=== PATIENT | female | born 1955 | race Caucasian/White ===

== ENCOUNTER 2019-08-15 16:09 | Emergency (ER) | payer MEDICAID, SELFPAY ==
[2019-08-15 16:11] VITALS: TEMP 36.6; BMI 27.4
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
--- NOTE | 2019-08-15 16:22 | XRR_ITS ---
PROCEDURE INFORMATION: Exam: XR Chest, 1 View Exam date and time: 08/15/2019 4:47 PM Age: 64 years old Clinical indication: Chest pain; Additional info: Chest pain, mhe TECHNIQUE: Imaging protocol: XR of the chest Views: 1 view. COMPARISON: CR Chest 1 [place] [id number] 07/21/2017 12:10 PM FINDINGS: Lungs: Unremarkable. No consolidation. Pleural space: Unremarkable. No pleural effusion. No pneumothorax. Heart/Mediastinum: Unremarkable. No cardiomegaly. Bones/joints: Unremarkable. XR/XR chest 1V portable [id number] IMPRESSION: No acute findings.
[2019-08-15 16:23] VITALS: BP 167/110; PULSE 87; RESP 18; O2SAT 98
[2019-08-15 17:02] LABS: Basophils % 0.2 %; Eosinophils # 0.1 10^3/uL (0.0-0.8); Eosinophils % 1.2 %; Hematocrit 39.6 % (37.0-47.0); Hemoglobin 13.1 g/dL (11.5-15.3); Lymphocytes # 0.7 10^3/uL (0.8-4.8); Lymphocytes % 10.1 %; Mean Corpuscular HGB Conc 33.1 g/dL (30.0-36.0); Mean Corpuscular Volume 87.8 fL (81-99); Mean Platelet Volume 10.6 fL (7.4-10.4); Monocytes # 0.4 10^3/uL (0.2-0.9); Monocytes % 5.7 %; Neutrophils # 5.4 10^3/uL (1.8-7.7); Neutrophils % 82.5 %; Nucleated Red Blood Cells % 0 %; Platelet Count 105 10^3/cmm (130-400); Red Blood Count 4.51 10^6/uL (4.1-5.3); Red Cell Distribution Width 13.7 % (12.1-15.1); White Blood Count 6.5 10^3/uL (4.0-10.0)
[2019-08-15 17:10] LABS: Add Urine Microscopic? NO
[2019-08-15 17:22] LABS: Specific Gravity, Urine 1.015 (1.005-1.030); Urine Appearance Clear (CLEAR); Urine Color Yellow (Yellow); pH Urine 5 (5-7)
[2019-08-15 17:23] LABS: Bilirubin Urine Neg (NEGATIVE); Blood Urine Neg (Negative); Glucose Urine UA Norm (Normal); Ketones Urine Negative (Negative); Leukocyte Esterase Urine Negative (Negative); Nitrate Urine Negative (Negative); Protein Urine Neg (Negative); Urobilinogen Urine Norm (Negative)
[2019-08-15 17:39] LABS: Anion Gap 17.3 (5-19); Blood Urea Nitrogen 12 mg/dL (8-23); Carbon Dioxide 25 mmol/L (22-29); Chloride 99 mmol/L (98-107); Creatinine Clr Calc Pharmacy 62.4704; Glomerular Filtration Rate 63.2 mL/min (90-130); Glucose 170 mg/dL (74-106); Osmolality Calculated 286 mOsm/kg (285-295); Potassium 3.3 mmol/L (3.5-5.1); Sodium 138 mmol/L (136-145)
[2019-08-15 18:53] VITALS: BP 135/90; PULSE 68; RESP 17; O2SAT 97
== END 2019-08-15 18:55 | disposition home or self-care (01) ==
PROVIDERS: Emergency Provider Emergency Medicine; Family Provider Family Medicine
DX: R45.1 Restlessness and agitation (principal)
CPT/HCPCS: 36415; 71045; 80048; 81003; 85025; 99282

== ENCOUNTER 2019-08-15 21:14 | Emergency (ER) | payer MEDICAID, SELFPAY ==
[2019-08-15 21:22] VITALS: BP 175/108; PULSE 90; RESP 16; TEMP 37; O2SAT 96; BMI 27.4
[2019-08-15 21:30] VITALS: BP 175/108; PULSE 93; RESP 16; O2SAT 98
--- NOTE | 2019-08-15 21:32 | W.ED.GENADLT ---
HPI - General Adult General: Chief complaint: Skin/Abscess/Foreign Body Stated complaint: rash l hand Time Seen by Provider: 08/15/19 21:25 History of Present Illness: HPI narrative: Patient states that while she is waiting in the waiting room for her ride after she has been discharged that she had a rash started on her left hand. complaint: petechia Onset (ago): minute(s) Location: left and upper extremity Radiation: non-radiation Severity: mild Review of Systems General: Reports: 10 or more systems reviewed and unremarkable except in HPI and below (Says there is a rash in her left hand that started few months ago.) PFSH ED PFSH: Statuses (acute, chronic, etc) shown below reflect problem list status as previously entered and may not be historically accurate Social History Smoking and tobacco status: current every day smoker Physical Exam Const: COMMON NORMALS: no apparent distress Skin: COMMON NORMALS: no rashes or lesions noted NARRATIVE SKIN EXAM: Patient does not really have a rash in her hands she has a few petechiae very small that been there a long time that just noticed no erythema pain or anything like that noted GENERAL SKIN EXAM: no rashes or lesions noted Course Vital Signs: Vital signs: Vital Signs Temperature 98.6 F 08/15/19 21:22 Pulse Rate 93 08/15/19 21:30 Respiratory Rate 16 08/15/19 21:30 Blood Pressure 175/108 08/15/19 21:30 Pulse Oximetry 98 08/15/19 21:30 Discharge Plan Discharge Patient Disposition: Home, Self-Care Clinical Impression: Petechiae Condition: Stable Discharge Orders: Discharge Order (Routine); Ordered 08/15/19 Ordered By: Yandel Zamudio Referrals: Jose Ryan Jr, MD [Family Provider] - Discharge Diet: Usual diet Discharge Activity: Resume usual activity Activity Restrictions/Additional Instructions: Follow-up with primary provider as necessary Coding Level of Care Code ED Clin Application Specialist for Randal Kirby
== END 2019-08-15 21:42 | disposition home or self-care (01) ==
PROVIDERS: Emergency Provider Nurse Practitioner Family; Family Provider Family Medicine
DX: R23.3 Spontaneous ecchymoses (principal); F17.210 Nicotine dependence, cigarettes, uncomplicated
CPT/HCPCS: 99281

== ENCOUNTER 2019-09-05 10:18 | Outpatient (CLI) | payer MEDICAID, SELFPAY ==
--- NOTE | 2019-09-05 10:18 | MM_ITS ---
WS: [id number] BILATERAL DIGITAL SCREENING MAMMOGRAPHY WITH CAD CLINICAL INFORMATION: SCREENING HISTORY: Screening mammogram. No current complaints. COMPARISON: April 19, 2018 TECHNIQUE: Bilateral CC and MLO views. FINDINGS: Scattered fibroglandular densities bilaterally. Vascular calcification. No suspicious focal mass, asy mmetry, calcifications, or architectural distortion. No evidence of malignancy. MM/[id number] IMPRESSION: BI-RADS: 1-Negative FOLLOW UP: 1 Year Follow-up Recommend return to annual screening mammography.
== END 2019-09-05 10:19 | disposition home or self-care (01) ==
LOC: RADSHAW 10:18
PROVIDERS: Family Provider Family Medicine; PCP Family Medicine; Visit Provider Family Medicine
DX: Z12.31 Encounter for screening mammogram for malignant neoplasm of breast (principal)
CPT/HCPCS: 77067

== ENCOUNTER 2020-10-12 10:31 | Outpatient (CLI) | payer MEDICAID, SELFPAY ==
--- NOTE | 2020-10-12 10:37 | MM_ITS ---
WS: [id number] Exam: [place] [id number] Date/Time of Exam: 10/12/2020 10:38 AM Reason For Exam: SCREENING VIEWS: MLO and CC views both breasts. Comparison made with prior exam of 08/02/2016, 04/19/2018 and 09/05/2019. Findings: There was no sign of mass, architectural distortion or suspicious calcification in either breast. Sc attered fibroglandular densities MM/[place] [id number] Impression: BI-RADS: 2-Benign FOLLOW-UP: 1 Year Follow-up This mammogram was also analyzed by the Computer Aided Detection System R2 Imag e Supply Aide.
== END 2020-10-12 10:32 | disposition home or self-care (01) ==
LOC: RADSHAW 10:36
PROVIDERS: PCP Family Medicine; Visit Provider Family Medicine
DX: Z12.31 Encounter for screening mammogram for malignant neoplasm of breast (principal)
CPT/HCPCS: 77067

== ENCOUNTER → 2020-11-06 10:00 | Outpatient (BNVA) | payer MEDICAID, SELFPAY | PROVIDERS: PCP Family Medicine; Visit Provider Obstetrics & Gynecology | DX: Z12.4 Encounter for screening for malignant neoplasm of cervix (principal); Z12.11 Encounter for screening for malignant neoplasm of colon | CPT/HCPCS: 88175 ==

== ENCOUNTER 2021-12-02 17:12 | Emergency (ER) | payer MEDICAID, SELFPAY ==
[2021-12-02 17:39] VITALS: BP 134/80; PULSE 87; RESP 18; TEMP 37; O2SAT 97; BMI 25.4
--- NOTE | 2021-12-02 18:24 | CTR_ITS ---
PROCEDURE INFORMATION: Exam: CT Abdomen And Pelvis Without Contrast Exam date and time: 12/02/2021 6:44 PM Age: 66 years old Clinical indication: Abdominal pain; Localized; Right; Prior surgery; Surgery date: 6+ months; Surgery type: Appy; Additional info: Right flank pain TECHNIQUE: Imaging protocol: Computed tomography of the abdomen and pelvis without contrast. Radiation optimization: All CT scans at this facility use at least one of these dose optimization techniques: automated exposure control; mA and/or kV adjustment per patient size (includes targeted exams where dose is matched to clinical indication); or iterative reconstruction. COMPARISON: CT abdomen pelvis w con* [id number] 02/11/2016 8:27 PM RADIATION DOSE METRICS: Total DLP (mGy-cm): 675.55 FINDINGS: Liver: Normal. No mass. Gallbladder and bile ducts: Cholelithiasis. Pancreas: Normal. No ductal dilation. Spleen: Normal. No splenomegaly. Adrenal glands: Normal. No mass. Kidneys and ureters: Normal. No hydronephrosis. Stomach and bowel: Constipation. Appendix: No evidence of appendicitis. Intraperitoneal space: Unremarkable. No free air. No significant fluid collection. Vasculature: Unremarkable. No abdominal aortic aneurysm. Lymph nodes: Unremarkable. No enlarged lymph nodes. Urinary bladder: Unremarkable as visualized. Reproductive: Unremarkable as visualized. Bones/joints: L1 vertebral body superior endplate compression fracture without retropulsion of bony fragments, new compared to prior exam. Soft tissues: Small umbilical hernia containing omentum without bowel. CT/CT kidney stone [id number] IMPRESSION: 1. Negative for acute inflammatory process in the abdomen or pelvis. 2. Cholelithiasis. 3. Constipation. 4. Small umbilical hernia containing omentum without bowel. 5. L1 vertebral body superior endplate compression fracture without retropulsion of bony fragments, new compared to prior exam.
--- NOTE | 2021-12-02 18:31 | ED_ITS ---
HPI - Abdominal Pain General: Chief Complaint: Abdominal Pain Stated Complaint: R SIDED ABD PAIN Time Seen by Provider: 12/02/21 18:23 History of Present Illness: 66-year-old female comes in today with complaints of right flank pain. Patient reports pain increases with palpation of the musculature. Patient does admit that she fell on Monday and hit the back of her head denies any loss of consciousness. Since then patient has had some increased back pain. Patient was concerned that she may have a kidney stone though. Patient came in by EMS. Patient appears well. Patient appears in no acute distress. Patient does report that the floor was wet when she slipped. Patient has a history of diabetes and mental health issues. Associated Symptoms: Denies fever(s) Review of Systems General: Reports: 10 or more systems reviewed and unremarkable except in HPI and below Const: Denies: fever(s) Card: Denies: chest pain Resp: Denies: dyspnea : Reports: flank pain Musc: Reports: back pain Skin/Breast: Denies: rash PFSH ED PFSH: Medical History (Updated 12/02/21 @ 20:23 by OMERO Hung) Well woman exam with routine gynecological exam Surgical History (Updated 11/09/20 @ 17:34 by Adama Balderas MD) H/O dilation and curettage S/P appendectomy Family History (Updated 11/06/20 @ 09:55 by Melyssa Martel RN) Sister Diabetes Mother Heart disease Thyroid condition Clotting disorder Father Hypertension Brain aneurysm Denies family history of Colon cancer Ovarian cancer Breast cancer Anesthesia complication Bleeding disorder Uterine cancer Stroke Social History (Updated 11/06/20 @ 09:55 by Melyssa Martel RN) Smoking and tobacco status: never smoked Alcohol intake: never Physical Exam Const: COMMON NORMALS: alert HENMT: COMMON NORMALS: atraumatic HEAD & SCALP: atraumatic Neck/C-Spine: COMMON NORMALS: full ROM Chest: COMMONS NORMALS: normal inspection of the chest and normal palpation of the breasts BREAST/AXILLA PALPATION: Yes normal palpation of the breasts Resp: COMMON NORMALS: normal respiratory effort and clear to auscultation bilaterally AUSCULTATION: clear to auscultation bilaterally Cardio: COMMON NORMALS: regular rate RATE: regular rate GI: COMMON NORMALS: Soft to palpation AUSCULTATION: Yes normoactive bowel sounds PALPATION: Yes Soft to palpation and Yes Tenderness to palpation present (GI) (Generalized) Back/Pelvis: LUMBAR SPINE/LOWER BACK: Yes paraspinal muscle tenderness Lumbar paraspinal muscle tenderness: right Right lumbar paraspinal muscle tenderness: L2 and L3 Extremity: COMMON NORMALS: normal to inspection Neuro: SENSORIUM/ORIENTATION: Yes alert Skin: COMMON NORMALS: no rashes or lesions noted GENERAL SKIN EXAM: no rashes or lesions noted Course Vital Signs: Vital signs: Vital Signs Temperature 98.6 F 12/02/21 17:39 Pulse Rate 87 12/02/21 17:39 Respiratory Rate 18 12/02/21 17:39 Blood Pressure 134/80 12/02/21 17:39 Pulse Oximetry 97 12/02/21 17:39 MDM - Abdominal Pain Medical Decision Making Patient comes in today for complaints of right flank pain. Patient reports that she had fallen last Monday and since then has had some mid low back pain. It was reported that they were concerned for a renal stone. On exam abdomen was soft with some mild tenderness. Respirations were even lungs were clear to auscultation. Skin was warm and dry. Patient has tenderness in the right para spinous muscles of the lumbar spine. Differential diagnosis includes renal calculi, UTI, vertebral fracture, intervertebral disc disease, facet arthropathy. CT of the abdomen and pelvis indicated no renal calculi but did note a acute L1 vertebral fracture. No signs of significant retropulsion or abnormality was noted. CBC CMP and urinalysis were unremarkable. Patient was recommended to use acetaminophen or ibuprofen for pain. Patient can use some hydrocodone as needed for severe pain. Follow-up with primary care for further instruction. Patient was released back to [facility]. Lab Data : 12/02/21 19:55 12/02/21 19:00 Labs/Radiology: Radiology Impressions Abdomen/Pelvis CT 12/02/21 18:24 IMPRESSION: 1. Negative for acute inflammatory process in the abdomen or pelvis. 2. Cholelithiasis. 3. Constipation. 4. Small umbilical hernia containing omentum without bowel. 5. L1 vertebral body superior endplate compression fracture without retropulsion of bony fragments, new compared to prior exam. Laboratory Results WBC 4.8 10^3/uL (4.0-10.0) 12/02/21 19:55 Corrected WBC Cancelled 12/02/21 19:00 RBC 4.27 10^6/uL (4.1-5.3) 12/02/21 19:55 Hgb 12.9 g/dL (11.5-15.3) 12/02/21 19:55 Hct 39.4 % (37.0-47.0) 12/02/21 19:55 MCV 92.3 fl (81-99) 12/02/21 19:55 MCH 30.2 pg (28.0-34.0) 12/02/21 19:55 MCHC 32.7 g/dL (30.0-36.0) 12/02/21 19:55 RDW 13.4 % (12.1-15.1) 12/02/21 19:55 Plt Count 116 10^3/cmm (130-400) L 12/02/21 19:55 MPV 11.2 fL (7.4-10.4) H 12/02/21 19:55 Gran % Cancelled 12/02/21 19:00 Neut % (Auto) 59.3 % 12/02/21 19:55 Lymph % (Auto) 24.8 % 12/02/21 19:55 [place] % (Auto) 8.9 % 12/02/21 19:55 Eos % (Auto) 6.2 % 12/02/21 19:55 Baso % (Auto) 0.4 % 12/02/21 19:55 Neut # (Auto) 2.86 10^3/uL (1.8-7.7) 12/02/21 19:55 Lymph # (Auto) 1.2 10^3/uL (0.8-4.8) 12/02/21 19:55 [place]win # (Auto) 0.4 10^3/uL (0.2-0.9) 12/02/21 19:55 Eos # (Auto) 0.3 10^3/uL (0.0-0.8) 12/02/21 19:55 Baso # (Auto) 0.0 10^3/uL (0.0-0.1) 12/02/21 19:55 Absolute Gran (auto) Cancelled 12/02/21 19:00 Nucleated RBC % (auto) 0 % 12/02/21 19:55 Nucleated RBCs # 0.0 /100WBC 12/02/21 19:55 Sodium 139 mmol/L (136-145) 12/02/21 19:00 Potassium 4.2 mmol/L (3.5-5.1) 12/02/21 19:00 Chloride 101 mmol/L (98-107) 12/02/21 19:00 Carbon Dioxide 26 mmol/L (22-29) 12/02/21 19:00 Anion Gap 16.2 (5-19) 12/02/21 19:00 BUN 13 mg/dL (8-23) 12/02/21 19:00 Creatinine 0.7 mg/dL (0.5-0.9) 12/02/21 19: GFR Calculation 84.0 mL/min (90-130) L 12/02/21 19: Glucose 120 mg/dL (65-115) H 12/02/21 19: Calculated Osmolality 289 mOsm/kg (285-295) 12/02/21 19: Calcium 9.6 mg/dL (8.5-10.5) 12/02/21 19: Total Bilirubin 0.2 mg/dL (0.15-1.2) 12/02/21 19: AST 19 U/L (0-32) 12/02/21 19: ALT 16 U/L (0-33) 12/02/21 19: Alkaline Phosphatase 86 IU/L (35-105) 12/02/21 19: Total Protein 8.5 g/dL (6.6-8.7) 12/02/21 19: Albumin 4.9 g/dL (3.5-5.2) 12/02/21 19: Globulin 3.6 g/dL (1.3-4.6) 12/02/21 19: Lipase 53 U/L (13-60) 12/02/21 19: Urine Color Yellow (Yellow) 12/02/21 19: Urine Appearance Hazy (CLEAR) A 12/02/21 19: Urine pH 6 (5-7) 12/02/21 19: Ur Specific [place] 1.015 (1.005-1.030) 12/02/21 19: Urine Protein Neg (Negative) 12/02/21 19: Urine Glucose (UA) Norm (Normal) 12/02/21 19:00 Urine Ketones Negative (Negative) 12/02/21 19:00 Urine Blood Neg (Negative) 12/02/21 19:00 Urine Nitrate Negative (Negative) 12/02/21 19:00 Urine Bilirubin Neg (Negative) 12/02/21 19:00 Urine Urobilinogen Norm mg/dL (Negative) 12/02/21 19:00 Ur Leukocyte Esterase Negative (Negative) 12/02/21 19:00 Discharge Plan Discharge Patient Disposition: Home Clinical Impression: Closed lumbar vertebral fracture Qualifiers: Encounter type: initial encounter Lumbar vertebra fracture level: L1 Fracture morphology: unspecified fracture morphology Qualified Code(s): S32.019A - Unspecified fracture of first lumbar vertebra, initial encounter for closed fracture Condition: Stable Prescriptions: New hydrocodone-acetaminophen 5-325 mg tablet 1 tab PO Q8H PRN (Reason: pain (scale score 7-10)) Qty: 10 0RF No Action Stomach medication PO BID 0RF docusate sodium [Colace] 100 mg capsule 100 mg PO DAILY 0RF Lantus Solostar U-100 Insulin 100 unit/mL (3 mL) insulin pen 10 unit SUBCUT DAILY 0RF lorazepam [Ativan] 1 mg tablet 1 mg PO DAILY PRN0RF quetiapine [Seroquel] 400 mg tablet 400 mg PO .at hs 0RF Discharge Orders: Discharge ED (Routine); Ordered 12/02/21 Ordered By: Kota Kumari Referrals: Chelita Alcaraz MD [Primary Care Provider] - Discharge Diet: Usual diet Discharge Activity: Increase activity as tolerated Patient Instructions: Thoracolumbar Fracture (ED), Opioid Safety Activity Restrictions/Additional Instructions: Use acetaminophen and/or ibuprofen as needed for pain. Use hydrocodone for severe pain. Activity as tolerated. Follow-up with primary care for further instructions. Return to ER for new concerns. Coding Level of Care Code ED Rail Signal Designer for Vandanag Fwd Exam Comprehensive
[2021-12-02 19:31] LABS: Alanine Aminotransferase 16 U/L (0-33); Albumin Level 4.9 g/dL (3.5-5.2); Alkaline Phosphatase 86 IU/L (35-105); Blood Urea Nitrogen 13 mg/dL (8-23); Calcium 9.6 mg/dL (8.5-10.5); Carbon Dioxide 26 mmol/L (22-29); Chloride 101 mmol/L (98-107); Globulin 3.6 g/dL (1.3-4.6); Glucose 120 mg/dL (65-115); Lipase 53 U/L (13-60); Osmolality Calculated 289 mOsm/kg (285-295); Sodium 139 mmol/L (136-145); Total Bilirubin 0.2 mg/dL (0.15-1.2); Total Protein 8.5 g/dL (6.6-8.7)
[2021-12-02 19:33] LABS: Anion Gap 16.2 (5-19); Aspartate Amino Transferase 19 U/L (0-32); Potassium 4.2 mmol/L (3.5-5.1)
[2021-12-02 19:35] LABS: Add Urine Microscopic? NO; Charge for UA Resulting for Rev
[2021-12-02 19:47] LABS: Bilirubin Urine Neg (Negative); Blood Urine Neg (Negative); Glucose Urine UA Norm (Normal); Ketones Urine Negative (Negative); Leukocyte Esterase Urine Negative (Negative); Nitrate Urine Negative (Negative); Protein Urine Neg (Negative); Specific Gravity, Urine 1.015 (1.005-1.030); Urine Appearance Hazy (CLEAR); Urine Color Yellow (Yellow); Urobilinogen Urine Norm (Negative); pH Urine 6 (5-7)
[2021-12-02 20:14] LABS: Basophils % 0.4 %; Eosinophils # 0.3 10^3/uL (0.0-0.8); Eosinophils % 6.2 %; Hematocrit 39.4 % (37.0-47.0); Hemoglobin 12.9 g/dL (11.5-15.3); Lymphocytes # 1.2 10^3/uL (0.8-4.8); Lymphocytes % 24.8 %; Mean Corpuscular HGB Conc 32.7 g/dL (30.0-36.0); Mean Corpuscular Hemoglobin 30.2 pg (28.0-34.0); Mean Corpuscular Volume 92.3 fl (81-99); Mean Platelet Volume 11.2 fL (7.4-10.4); Monocytes # 0.4 10^3/uL (0.2-0.9); Monocytes % 8.9 %; Neutrophils # 2.86 10^3/uL (1.8-7.7); Neutrophils % 59.3 %; Nucleated Red Blood Cells % 0 %; Platelet Count 116 10^3/cmm (130-400); Red Blood Count 4.27 10^6/uL (4.1-5.3); Red Cell Distribution Width 13.4 % (12.1-15.1); White Blood Count 4.8 10^3/uL (4.0-10.0)
== END 2021-12-02 20:58 | disposition home or self-care (01) ==
PROVIDERS: Emergency Provider Nurse Practitioner Family; PCP Family Medicine
DX: S32.019A Unspecified fracture of first lumbar vertebra, initial encounter for closed fracture (principal); W19.XXXA Unspecified fall, initial encounter
CPT/HCPCS: 36415; 74176; 80053; 81003; 83690; 85025; 99283

== ENCOUNTER 2021-12-10 13:48 | Outpatient (CLI) | payer MEDICAID, SELFPAY ==
--- NOTE | 2021-12-10 13:54 | MM_ITS ---
WS: [id number] BILATERAL SCREENING DIGITAL BREAST TOMOSYNTHESIS MAMMOGRAM WITH CAD HISTORY: SCREENING COMPARISON: 10/10/2020, 07/05/2020 Bilateral CC and MLO views with tomosynthesis and synthetic mammography submitted. Computer aided det ection analyzed. Breast composition: There are scattered areas of fibroglandular density. No suspicious masses, microc alcifications or architectural distortion. MM/[place] [id number] IMPRESSION: BI-RADS: 1-Negative FOLLOW UP: 1 Year Follow-up
== END 2021-12-10 13:49 | disposition home or self-care (01) ==
PROVIDERS: PCP Family Medicine; Visit Provider Family Medicine
DX: Z12.31 Encounter for screening mammogram for malignant neoplasm of breast (principal)
CPT/HCPCS: 77063; 77067

== ENCOUNTER 2022-04-25 16:12 | Emergency (ER) | payer MEDICAID, SELFPAY ==
--- NOTE | 2022-04-25 16:18 | CTR_ITS ---
PROCEDURE INFORMATION: Exam: CT Head Without Contrast Exam date and time: 04/25/2022 5:19 PM Age: 67 years old Clinical indication: Altered mental status/memory loss and dizziness; Additional info: AMS TECHNIQUE: Imaging protocol: Computed tomography of the head without contrast. Radiation optimization: All CT scans at this facility use at least one of these dose optimization techniques: automated exposure control; mA and/or kV adjustment per patient size (includes targeted exams where dose is matched to clinical indication); or iterative reconstruction. COMPARISON: No relevant prior studies available. RADIATION DOSE METRICS: Total DLP (mGy-cm): 1147.08 FINDINGS: Brain: No apparent edema in the brain. Questionable minimal chronic white matter disease. Enlarged supratentorial subarachnoid spaces. No intracranial hemorrhage. Cerebral ventricles: Mild enlargement of the 3rd and lateral ventricles compared to the normal 4th ventricle. Paranasal sinuses: Filling of all of the visualized right maxillary sinus by heterogeneous density; high suspicion of protrusion of some of this density through the right middle meatus. Mucous retention cysts and/or mucosal thickening in a few other paranasal sinuses. No air-fluid levels in the visualized sinuses. Mastoid air cells: No definite mastoid disease. Bones/joints: Slight thickening of the wall of the right maxillary sinus. Bilateral TMJ degeneration. No acute skull fracture. Soft tissues: Unremarkable. CT/CT head wo con* [id number] IMPRESSION: 1. No acute intracranial findings. Slight cerebral atrophy. 2. Marked chronic-appearing right maxillary sinus disease and other findings detailed above.
[2022-04-25 16:32] VITALS: BMI 25.4
--- NOTE | 2022-04-25 17:01 | ED.C_ITS ---
HPI - Psych General: Chief Complaint: Psychiatric Symptoms Stated Complaint: DEPRESSION Time Seen by Provider: 04/25/22 16:18 PFSH ED PFSH: Medical History (Updated 12/10/21 @ 00:01 by ) Well woman exam with routine gynecological exam Surgical History (Updated 11/09/20 @ 17:34 by Adama Balderas MD) H/O dilation and curettage S/P appendectomy Family History (Updated 11/06/20 @ 09:55 by Melyssa Martel, RN) Sister Diabetes Mother Heart disease Thyroid condition Clotting disorder Father Hypertension Brain aneurysm Denies family history of Colon cancer Ovarian cancer Breast cancer Anesthesia complication Bleeding disorder Uterine cancer Stroke Social History (Updated 11/06/20 @ 09:55 by Melyssa Martel, RN) Smoking and tobacco status: never smoked Alcohol intake: never Discharge Plan Discharge Condition: Stable Prescriptions: No Action Stomach medication PO BID docusate sodium [Colace] 100 mg capsule 100 mg PO DAILY Lantus Solostar U-100 Insulin 100 unit/mL (3 mL) insulin pen 10 unit SUBCUT DAILY lorazepam [Ativan] 1 mg tablet 1 mg PO DAILY PRN quetiapine [Seroquel] 400 mg tablet 400 mg PO .at hs hydrocodone-acetaminophen 5-325 mg tablet 1 tab PO Q8H PRN (Reason: pain (scale score 7-10)) Qty: 10 0RF Referrals: Chelita Alcaraz MD [Primary Care Provider] - Coding Level of Care Code ED Hydro Electric Station Operator for Randal Kirby
--- NOTE | 2022-04-25 17:05 | W.ED.GENADLT ---
Documented by User: Sherif Bravo MD 04/25/22 21:50 HPI - General Adult General: Chief complaint: Psychiatric Symptoms Stated complaint: DEPRESSION Time Seen by Provider: 04/25/22 16:18 History of Present Illness: HPI: [67]yo patient w/ hx of depression brought in by EMS for concerns of worsening depression. Patient is currently living at an assisted living facility and there is concerns for abandonment by family. Patient is feeling depressed reports some suicidal ideation without any active plan currently. For On arrival, the patient is AAOx3 and cooperative with my evaluation. No focal complaints of chest pain, shortness of breath, palpitations, N/V, focal GI/ complaints. Currently denies HI. No complaints of hallucinations. Onset: chronic Duration: ongoing Location: home Severity: severe Associated symptoms: Deny chest pain, dyspnea, nausea, rash, palpitations or vomiting Review of Systems Const: Denies: fever(s) or chills Eyes: Denies: change in vision ENMT: Denies: mouth pain Card: Denies: chest pain or palpitations Resp: Denies: dyspnea or non-productive cough GI: Denies: abdominal pain, nausea, vomiting or diarrhea : Denies: dysuria Musc: Denies: extremity pain Skin/Breast: Denies: rash or new lesions Neuro: Denies: weakness in extremities Psych: Reports: depression and suicidal ideation Jesus/Lymph: Denies: easy bruising PFSH ED PFSH: Medical History Well woman exam with routine gynecological exam Surgical History H/O dilation and curettage S/P appendectomy Family History Sister Diabetes Mother Heart disease Thyroid condition Clotting disorder Father Hypertension Brain aneurysm Denies family history of Colon cancer Ovarian cancer Breast cancer Anesthesia complication Bleeding disorder Uterine cancer Stroke Social History Smoking and tobacco status: never smoked Alcohol intake: never Physical Exam Const: COMMON NORMALS: alert HENMT: COMMON NORMALS: atraumatic HEAD & SCALP: atraumatic MOUTH: moist mucous membranes not abnormal Eye: COMMON NORMALS: EOMs intact bilaterally and conjunctivae normal CONJUNCTIVA: Yes conjunctivae normal Neck/C-Spine: COMMON NORMALS: full ROM and supple Resp: COMMON NORMALS: normal respiratory effort and clear to auscultation bilaterally AUSCULTATION: clear to auscultation bilaterally Cardio: COMMON NORMALS: regular rate RATE: regular rate GI: COMMON NORMALS: Soft to palpation and non-tender PALPATION: Yes Soft to palpation Extremity: COMMON NORMALS: full ROM Neuro: SENSORIUM/ORIENTATION: Yes alert MOTOR EXAM: No Abnormal motor strength present and Other motor observations present (no focal motor deficits) Psych: COMMON NORMALS: speech normal SPEECH: Yes normal speech MOOD & AFFECT: Yes depressed mood Course Vital Signs: Vital signs: Vital Signs Pulse Rate 70 04/26/22 08:13 Respiratory Rate 16 04/26/22 08:13 Blood Pressure 152/80 04/26/22 08:13 Pulse Oximetry 97 04/26/22 08:13 Oxygen Delivery Me thod 04/25/22 21:00 MDM - General Adult Medical Decision Making [67]yo patient w/ hx of depression presenting for depression and concerning for SI. HDS, exam within normal limit Thoughts are linear and organized, and the patient has no AH/VH, or HI. Clinically the patient displays no overt toxidrome; they are well appearing, with low suspicion for toxic ingestion given history and exam. Symptoms unlikely 2/2 anemia, hypothyroidism, infection, or ICH. Workup: CBC, CMP, Lipase, salicylate/tylenol, TSH/free T4, EKG, covid antigen, XR chest, serum ethanol, UDS Lab findings: wnl, +benzo in the urien [6:30pm] On reassessment, labs and workup wnl. Patient is hemodynamically stable with no acute medical complaints. Case discussed with psychiatric provider Dr. Duque at [facility] psych inpatient with recommendation [facility] admission to [facility] facility. Patient received PO ativan for mild agitation. [facility] Lab Data : 04/25/22 17:37 04/25/22 17:[address] 04/25/22 16:18 IMPRESSION: 1. No acute intracranial findings. Slight cerebral atrophy. 2. Marked chronic-appearing right maxillary sinus disease and other findings detailed above. Chest X-Ray 04/25/22 17:20 IMPRESSION: No acute findings. Laboratory Results WBC 5.2 10^3/uL (4.0-10.0) 04/25/22 17:37 RBC 4.33 10^6/uL (4.1-5.3) 04/25/22 17:37 Hgb 13.2 g/dL (11.5-15.3) 04/25/22 17:37 Hct 39.5 % (37.0-47.0) 04/25/22 17:37 MCV 91.2 fl (81-99) 04/25/22 17:37 MCH 30.5 pg (28.0-34.0) 04/25/22 17:37 MCHC 33.4 g/dL (30.0-36.0) 04/25/22 17:37 RDW 12.8 % (12.1-15.1) 04/25/22 17:37 Plt Count 123 10^3/cmm (130-400) L 04/25/22 17:37 MPV 11.5 fL (7.4-10.4) H 04/25/22 17:37 Neut % (Auto) 66.6 % 04/25/22 17:37 Lymph % (Auto) 22.5 % 04/25/22 17:37 [place] % (Auto) 7.6 % 04/25/22 17:37 Eos % (Auto) 2.7 % 04/25/22 17:37 Baso % (Auto) 0.2 % 04/25/22 17:37 Neut # (Auto) 3.44 10^3/uL (1.8-7.7) 04/25/22 17:37 Lymph # (Auto) 1.2 10^3/uL (0.8-4.8) 04/25/22 17:37 Haskell # (Auto) 0.4 10^3/uL (0.2-0.9) 04/25/22 17:37 Eos # (Auto) 0.1 10^3/uL (0.0-0.8) 04/25/22 17:37 Baso # (Auto) 0.0 10^3/uL (0.0-0.1) 04/25/22 17:37 Nucleated RBC % (auto) 0 % 04/25/22 17:37 Nucleated RBCs # 0.0 /100WBC 04/25/22 17:37 Sodium 135 mmol/L (136-145) L 04/25/22 17:37 Potassium 4.2 mmol/L (3.5-5.1) 04/25/22 17:37 Chloride 101 mmol/L (98-107) 04/25/22 17:37 Carbon Dioxide 24 mmol/L (22-29) 04/25/22 17:37 Anion Gap 14.2 (5-19) 04/25/22 17:37 BUN 16 mg/dL (8-23) 04/25/22 17:37 Creatinine 0.8 mg/dL (0.5-0.9) 04/25/22 17:37 GFR Calculation 71.8 mL/min (90-130) L 04/25/22 17:37 Glucose 125 mg/dL (65-115) H 04/25/22 17:37 Calculated Osmolality 283 mOsm/kg (285-295) L 04/25/22 17:37 Calcium 8.9 mg/dL (8.5-10.5) 04/25/22 17:37 Total Bilirubin 0.2 mg/dL (0.15-1.2) 04/25/22 17:37 AST 13 U/L (0-32) 04/25/22 17:37 ALT 9 U/L (0-33) 04/25/22 17:37 Alkaline Phosphatase 82 U/L (35-105) 04/25/22 17:37 Total Protein 7.1 g/dL (6.6-8.7) 04/25/22 17:37 Albumin 4.1 g/dL (3.5-5.2) 04/25/22 17:37 Globulin 3.0 g/dL (1.3-4.6) 04/25/22 17:37 Lipase 48 U/L (13-60) 04/25/22 17:37 TSH 1.61 uIU/mL (0.27-4.20) 04/25/22 17:37 Free T4 1.01 ng/dL (0.82-1.77) 04/25/22 17:37 Urine Color Yellow (Yellow) 04/25/22 21:30 Urine Appearance Clear (CLEAR) 04/25/22 21:30 Urine pH 6.5 (5-7) 04/25/22 21:30 Ur Specific [place] 1.025 (1.005-1.030) 04/25/22 21:30 Urine Protein Negative (Negative) 04/25/22 21:30 Urine Glucose (UA) Negative (Normal) 04/25/22 21:30 Urine Ketones Negative (Negative) 04/25/22 21:30 Urine Blood Negative (Negative) 04/25/22 21:30 Urine Nitrate Negative 04/25/22 21:30 Urine Bilirubin Negative (Negative) 04/25/22 21:30 Urine Urobilinogen 1.0 mg/dL (Negative) 04/25/22 21:30 Ur Leukocyte Esterase Negative (Negative) 04/25/22 21:30 Salicylates < 0.3 mg/dL (3-10) L 04/25/22 17:37 Urine Opiates Screen Negative ng/mL (Negative) 04/25/22 21:30 Acetaminophen < 5.0 ug/mL (10-30) L 04/25/22 17:37 Ur Barbiturates Screen Negative ng/mL (Negative) 04/25/22 21:30 Ur Phencyclidine Scrn Negative ng/mL (Negative) 04/25/22 21:30 Ur Amphetamines Screen Negative ng/mL (Negative) 04/25/22 21:30 U Benzodiazepines Scrn Positive ng/mL (Negative) H 04/25/22 21:30 Urine Cocaine Screen Negative ng/mL (Negative) 04/25/22 21:30 U Marijuana (THC) Screen Negative ng/mL (Negative) 04/25/22 21:30 Ethyl Alcohol < 10 mg/dL (0-10) 04/25/22 17:37 SARS-CoV-2 Ag (Rapid) Negative (Negative) 04/25/22 17:37 Imaging Data Other Imaging: Radiologist's impression: [address] [address] XRay Report Signed Patient: Kelli Isaac Unit #: [id number] : 1955 Age/Sex: 67 / F ADM Date: 04/25/22 Loc: ER Room/Bed: Attending Dr: Ordering Provider/Ordering MD: Sherif Bravo MD Date of Service: 04/25/22 Procedure(s): XR chest 1V portable [id number] Accession Number(s): [id number] Report Number: [id number] PROCEDURE INFORMATION: Exam: XR Chest Exam date and time: 04/25/2022 5:28 PM Age: 67 years old Clinical indication: Screening exam; Other screening; Additional info: Psych clearance TECHNIQUE: Imaging protocol: Radiologic exam of the chest. Views: 1 view. COMPARISON: CR XR chest 1V portable [id number] 08/15/2019 4:34 PM FINDINGS: Lungs: Interval disappearance of the left basilar subsegmental atelectasis and increase in the bilateral lung volumes. Still no consolidation. Pleural spaces: Still no pneumothorax or apparent pleural fluid. Heart/Mediastinum: Continued small calcified lymph node in the left superior mediastinum. Still no cardiomegaly. Fat pad along the right heart margin still likely. Vasculature: Continued aortic elongation. Bones/joints: No suggestion of acute bony disease. XR/XR chest 1V portable [id number] IMPRESSION: No acute findings. ? Dictated By: Angelia Sky MD Signed By: Angelia Sky MD Signed Date/Time: 04/25/221756 DD/ [address] [place] [address] CT Scan Report Signed Patient: Kelli Isaac Unit #: [id number] : 1955 Age/Sex: 67 / F ADM Date: 04/25/22 Loc: ER Room/Bed: Attending Dr: Ordering Provider/Ordering MD: Sherif Bravo MD Date of Service: 04/25/22 Procedure(s): CT head wo con* [id number] Accession Number(s): [id number] Report Number: [id number] PROCEDURE INFORMATION: Exam: CT Head Without Contrast Exam date and time: 04/25/2022 5:19 PM Age: 67 years old Clinical indication: Altered mental status/memory loss and dizziness; Additional info: AMS TECHNIQUE: Imaging protocol: Computed tomography of the head without contrast. Radiation optimization: All CT scans at this facility use at least one of these dose optimization techniques: automated exposure control; mA and/or kV adjustment per patient size (includes targeted exams where dose is matched to clinical indication); or iterative reconstruction. COMPARISON: No relevant prior studies available. RADIATION DOSE METRICS: Total DLP (mGy-cm): 1147.08 FINDINGS: Brain: No apparent edema in the brain. Questionable minimal chronic white matter disease. Enlarged supratentorial subarachnoid spaces. No intracranial hemorrhage. Cerebral ventricles: Mild enlargement of the 3rd and lateral ventricles compared to the normal 4th ventricle. Paranasal sinuses: Filling of all of the visualized right maxillary sinus by heterogeneous density; high suspicion of protrusion of some of this density through the right middle meatus. Mucous retention cysts and/or mucosal thickening in a few other paranasal sinuses. No air-fluid levels in the visualized sinuses. Mastoid air cells: No definite mastoid disease. Bones/joints: Slight thickening of the wall of the right maxillary sinus. Bilateral TMJ degeneration. No acute skull fracture. Soft tissues: Unremarkable. CT/CT head wo con* [id number] IMPRESSION: 1. No acute intracranial findings. Slight cerebral atrophy. 2. Marked chronic-appearing right maxillary sinus disease and other findings detailed above. ? Dictated By: Angelia Sky MD Signed By: Angelia Sky MD Signed Date/Time: 04/25/221754 DD/ 18 Discharge Plan Discharge Patient Disposition: Xfer Psychiatric Hosp Clinical Impression: Depression, Depression with suicidal ideation Condition: Stable Prescriptions: No Action Stomach medication PO BID docusate sodium [Colace] 100 mg capsule 100 mg PO DAILY Lantus Solostar U-100 Insulin 100 unit/mL (3 mL) insulin pen 10 unit SUBCUT DAILY lorazepam [Ativan] 1 mg tablet 1 mg PO DAILY PRN quetiapine [Seroquel] 400 mg tablet 400 mg PO .at hs hydrocodone-acetaminophen 5-325 mg tablet 1 tab PO Q8H PRN (Reason: pain (scale score 7-10)) Qty: 10 0RF Referrals: Chelita Alcaraz MD [Primary Care Provider] - Patient Instructions: Opioid Safety, Pain Management Sign Out Sign Out Data: Patient Sign Out occurred on 04/26/22 at 06:05. Patient's care was discussed, and care was transferred from to Sony Caldwell DO. Coding Level of Care Code ED Account Manager Employee Benefits for Chg Fwd Exam Comprehensive Documented by User: Sony Caldwell DO 04/26/22 11:19 HPI - General Adult General: Chief complaint: Psychiatric Symptoms Stated complaint: DEPRESSION Time Seen by Provider: 04/25/22 16:18 PFSH ED PFSH: Medical History Well woman exam with routine gynecological exam Surgical History H/O dilation and curettage S/P appendectomy Family History Sister Diabetes Mother Heart disease Thyroid condition Clotting disorder Father Hypertension Brain aneurysm Denies family history of Colon cancer Ovarian cancer Breast cancer Anesthesia complication Bleeding disorder Uterine cancer Stroke Social History Smoking and tobacco status: never smoked Alcohol intake: never Course Vital Signs: Vital signs: Vital Signs Pulse Rate 70 04/26/22 08:13 Respiratory Rate 16 04/26/22 08:13 Blood Pressure 152/80 04/26/22 08:13 Pulse Oximetry 97 04/26/22 08:13 Oxygen Delivery Me thod 04/25/22 21:00 MDM - General Adult Medical Decision Making [67]yo patient w/ hx of depression presenting for depression and concerning for SI. HDS, exam within normal limit Thoughts are linear and organized, and the patient has no AH/VH, or HI. Clinically the patient displays no overt toxidrome; they are well appearing, with low suspicion for toxic ingestion given history and exam. Symptoms unlikely 2/2 anemia, hypothyroidism, infection, or ICH. Workup: CBC, CMP, Lipase, salicylate/tylenol, TSH/free T4, EKG, covid antigen, XR chest, serum ethanol, UDS Lab findings: wnl, +benzo in the urien [6:30pm] On reassessment, labs and workup wnl. Patient is hemodynamically stable with no acute medical complaints. Case discussed with psychiatric provider Dr. Duque at [facility] psych inpatient with [facility]. Patient received PO ativan for mild agitation. Disposition: [facility]fer to [facility] 04/26/2022 0800 AM Care assumed at change of shift. Chart reviewed. Patient is not on a 96-hour hold she does have a guardian. I contacted [facility] where she usually lives. Talked to a medical billing and coding instructor who provides most of the care and monitoring there. 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 She has no contact with any friends or family. She has a guardian from [place]. Multiple times in the past patient has called 911 she called 911 yesterday she was shaking seem to be afraid but declined asked for anything specifically 911 called the caregiver and then went out to evaluate her and ultimately she was brought in by ambulance. Caregiver states she has been very depressed and has made some suicidal ideation statements. When I talked to the patient she denies anything she does admit to being very depressed she tells me that she got into a disagreement with her roommate and a telescope maintenance yesterday but is unable to relate to me why that resulted in her being sent to the emergency room. I contacted her guardian who was aware that she was here is also aware that she has been very depressed and at times has made suicidal statements. The guardian is a [id number] to the patient's daughter. He has been coordinating much of her care. At one point she was in [place] and he moved her here to be closer to home. He is not able to see her often no other family members see her either. He would like for us to get her transferred to geriatric psychiatry facility to see if we can improve her depression and because of concerns of her suicidal ideation. Staff is making arrangements contacting potential facilities to transfer. Patient has been accepted at [facility] [place]. We will transfer via ground ambulance the guardian has been notified. Medical Records I reviewed the patient's medical records. Lab Data I reviewed the patient's lab results. : 04/25/22 17:37 04/25/22 17:[address] 04/25/22 16:18 IMPRESSION: 1. No acute intracranial findings. Slight cerebral atrophy. 2. Marked chronic-appearing right maxillary sinus disease and other findings detailed above. Chest X-Ray 04/25/22 17:20 IMPRESSION: No acute findings. Laboratory Results WBC 5.2 10^3/uL (4.0-10.0) 04/25/22 17:37 RBC 4.33 10^6/uL (4.1-5.3) 04/25/22 17:37 Hgb 13.2 g/dL (11.5-15.3) 04/25/22 17:37 Hct 39.5 % (37.0-47.0) 04/25/22 17:37 MCV 91.2 fl (81-99) 04/25/22 17:37 MCH 30.5 pg (28.0-34.0) 04/25/22 17:37 MCHC 33.4 g/dL (30.0-36.0) 04/25/22 17:37 RDW 12.8 % (12.1-15.1) 04/25/22 17:37 Plt Count 123 10^3/cmm (130-400) L 04/25/22 17:37 MPV 11.5 fL (7.4-10.4) H 04/25/22 17:37 Neut % (Auto) 66.6 % 04/25/22 17:37 Lymph % (Auto) 22.5 % 04/25/22 17:37 Haskell % (Auto) 7.6 % 04/25/22 17:37 Eos % (Auto) 2.7 % 04/25/22 17:37 Baso % (Auto) 0.2 % 04/25/22 17:37 Neut # (Auto) 3.44 10^3/uL (1.8-7.7) 04/25/22 17:37 Lymph # (Auto) 1.2 10^3/uL (0.8-4.8) 04/25/22 17:37 Haskell # (Auto) 0.4 10^3/uL (0.2-0.9) 04/25/22 17:37 Eos # (Auto) 0.1 10^3/uL (0.0-0.8) 04/25/22 17:37 Baso # (Auto) 0.0 10^3/uL (0.0-0.1) 04/25/22 17:37 Nucleated RBC % (auto) 0 % 04/25/22 17:37 Nucleated RBCs # 0.0 /100WBC 04/25/22 17:37 Sodium 135 mmol/L (136-145) L 04/25/22 17:37 Potassium 4.2 mmol/L (3.5-5.1) 04/25/22 17:37 Chloride 101 mmol/L (98-107) 04/25/22 17:37 Carbon Dioxide 24 mmol/L (22-29) 04/25/22 17:37 Anion Gap 14.2 (5-19) 04/25/22 17:37 BUN 16 mg/dL (8-23) 04/25/22 17:37 Creatinine 0.8 mg/dL (0.5-0.9) 04/25/22 17:37 GFR Calculation 71.8 mL/min (90-130) L 04/25/22 17:37 Glucose 125 mg/dL (65-115) H 04/25/22 17:37 Calculated Osmolality 283 mOsm/kg (285-295) L 04/25/22 17:37 Calcium 8.9 mg/dL (8.5-10.5) 04/25/22 17:37 Total Bilirubin 0.2 mg/dL (0.15-1.2) 04/25/22 17:37 AST 13 U/L (0-32) 04/25/22 17:37 ALT 9 U/L (0-33) 04/25/22 17:37 Alkaline Phosphatase 82 U/L (35-105) 04/25/22 17:37 Total Protein 7.1 g/dL (6.6-8.7) 04/25/22 17:37 Albumin 4.1 g/dL (3.5-5.2) 04/25/22 17:37 Globulin 3.0 g/dL (1.3-4.6) 04/25/22 17:37 Lipase 48 U/L (13-60) 04/25/22 17:37 TSH 1.61 uIU/mL (0.27-4.20) 04/25/22 17:37 Free T4 1.01 ng/dL (0.82-1.77) 04/25/22 17:37 Urine Color Yellow (Yellow) 04/25/22 21:30 Urine Appearance Clear (CLEAR) 04/25/22 21:30 Urine pH 6.5 (5-7) 10/03/22 21:30 Ur Specific [place] 1.025 (1.005-1.030) 04/25/22 21:30 Urine Protein Negative (Negative) 04/25/22 21:30 Urine Glucose (UA) Negative (Normal) 04/25/22 21:30 Urine Ketones Negative (Negative) 04/25/22 21:30 Urine Blood Negative (Negative) 04/25/22 21:30 Urine Nitrate Negative 04/25/22 21:30 Urine Bilirubin Negative (Negative) 04/25/22 21:30 Urine Urobilinogen 1.0 mg/dL (Negative) 04/25/22 21:30 Ur Leukocyte Esterase Negative (Negative) 04/25/22 21:30 Salicylates < 0.3 mg/dL (3-10) L 04/25/22 17:37 Urine Opiates Screen Negative ng/mL (Negative) 04/25/22 21:30 Acetaminophen < 5.0 ug/mL (10-30) L 04/25/22 17:37 Ur Barbiturates Screen Negative ng/mL (Negative) 04/25/22 21:30 Ur Phencyclidine Scrn Negative ng/mL (Negative) 04/25/22 21:30 Ur Amphetamines Screen Negative ng/mL (Negative) 04/25/22 21:30 U Benzodiazepines Scrn Positive ng/mL (Negative) H 04/25/22 21:30 Urine Cocaine Screen Negative ng/mL (Negative) 04/25/22 21:30 U Marijuana (THC) Screen Negative ng/mL (Negative) 04/25/22 21:30 Ethyl Alcohol < 10 mg/dL (0-10) 04/25/22 17:37 SARS-CoV-2 Ag (Rapid) Negative (Negative) 04/25/22 17:37 Discharge Plan Discharge Patient Disposition: Xfer Psychiatric Hosp Clinical Impression: Depression, Depression with suicidal ideation Condition: Stable Prescriptions: No Action Stomach medication PO BID docusate sodium [Colace] 100 mg capsule 100 mg PO DAILY Lantus Solostar U-100 Insulin 100 unit/mL (3 mL) insulin pen 10 unit SUBCUT DAILY lorazepam [Ativan] 1 mg tablet 1 mg PO DAILY PRN quetiapine [Seroquel] 400 mg tablet 400 mg PO .at hs hydrocodone-acetaminophen 5-325 mg tablet 1 tab PO Q8H PRN (Reason: pain (scale score 7-10)) Qty: 10 0RF Referrals: Chelita Alcaraz MD [Primary Care Provider] - Patient Instructions: Opioid Safety, Pain Management Sign Out Sign Out Data: Patient Sign Out occurred on 04/26/22 at 06:05. Patient's care was discussed, and care was transferred from to Sony Caldwell DO. Coding Level of Care Code ED Account Manager Employee Benefits for Chg Fwd Exam Comprehensive
--- NOTE | 2022-04-25 17:20 | XRR_ITS ---
PROCEDURE INFORMATION: Exam: XR Chest Exam date and time: 04/25/2022 5:28 PM Age: 67 years old Clinical indication: Screening exam; Other screening; Additional info: Psych clearance TECHNIQUE: Imaging protocol: Radiologic exam of the chest. Views: 1 view. COMPARISON: CR XR chest 1V portable [id number] 08/15/2019 4:34 PM FINDINGS: Lungs: Interval disappearance of the left basilar subsegmental atelectasis and increase in the bilateral lung volumes. Still no consolidation. Pleural spaces: Still no pneumothorax or apparent pleural fluid. Heart/Mediastinum: Continued small calcified lymph node in the left superior mediastinum. Still no cardiomegaly. Fat pad along the right heart margin still likely. Vasculature: Continued aortic elongation. Bones/joints: No suggestion of acute bony disease. XR/XR chest 1V portable [id number] IMPRESSION: No acute findings.
[2022-04-25 18:15] LABS: Basophils % 0.2 %; Eosinophils # 0.1 10^3/uL (0.0-0.8); Eosinophils % 2.7 %; Hematocrit 39.5 % (37.0-47.0); Hemoglobin 13.2 g/dL (11.5-15.3); Lymphocytes # 1.2 10^3/uL (0.8-4.8); Lymphocytes % 22.5 %; Mean Corpuscular HGB Conc 33.4 g/dL (30.0-36.0); Mean Corpuscular Hemoglobin 30.5 pg (28.0-34.0); Mean Corpuscular Volume 91.2 fl (81-99); Mean Platelet Volume 11.5 fL (7.4-10.4); Monocytes # 0.4 10^3/uL (0.2-0.9); Monocytes % 7.6 %; Neutrophils # 3.44 10^3/uL (1.8-7.7); Neutrophils % 66.6 %; Nucleated Red Blood Cells % 0 %; Platelet Count 123 10^3/cmm (130-400); Red Blood Count 4.33 10^6/uL (4.1-5.3); Red Cell Distribution Width 12.8 % (12.1-15.1); White Blood Count 5.2 10^3/uL (4.0-10.0)
[2022-04-25 18:37] LABS: SARS Covid-2 Antigen Negative (Negative)
[2022-04-25 18:46] LABS: Alanine Aminotransferase 9 U/L (0-33); Albumin Level 4.1 g/dL (3.5-5.2); Alkaline Phosphatase 82 U/L (35-105); Anion Gap 14.2 (5-19); Aspartate Amino Transferase 13 U/L (0-32); Blood Urea Nitrogen 16 mg/dL (8-23); Calcium 8.9 mg/dL (8.5-10.5); Carbon Dioxide 24 mmol/L (22-29); Chloride 101 mmol/L (98-107); Creatinine Clr Calc Pharmacy 65.1635; Glomerular Filtration Rate 71.8 mL/min (90-130); Glucose 125 mg/dL (65-115); Lipase 48 U/L (13-60); Osmolality Calculated 283 mOsm/kg (285-295); Potassium 4.2 mmol/L (3.5-5.1); Sodium 135 mmol/L (136-145); Thyroid Stimulating Hormone 1.61 uIU/mL (0.27-4.20); Total Bilirubin 0.2 mg/dL (0.15-1.2); Total Protein 7.1 g/dL (6.6-8.7)
[2022-04-25 18:56] LABS: Acetaminophen < 5.0 ug/mL (10-30); Alcohol Level < 10 mg/dL (0-10); Salicylate < 0.3 mg/dL (3-10)
[2022-04-25 21:00] VITALS: BP 156/90; PULSE 72; RESP 16; O2SAT 96
[2022-04-25] MEDS: LORazepam 1 mg Tablet PO (21:23)
[2022-04-25 21:37] LABS: Add Urine Microscopic? NO; Charge for UA Resulting for Rev
[2022-04-25 21:39] LABS: Bilirubin Urine Negative (Negative); Blood Urine Negative (Negative); Glucose Urine UA Negative (Normal); Ketones Urine Negative (Negative); Leukocyte Esterase Urine Negative (Negative); Nitrate Urine Negative; Protein Urine Negative (Negative); Specific Gravity, Urine 1.025 (1.005-1.030); Urine Appearance Clear (CLEAR); Urine Color Yellow (Yellow); pH Urine 6.5 (5-7)
[2022-04-25 21:49] LABS: Amphetamines Screen Urine Negative (Negative); Barbiturates Screen Urine Negative (Negative); Benzodiazepines Screen Urine Positive (Negative); Cocaine Screen Urine Negative (Negative); Opiate Screen Urine Negative (Negative); PCP Screen Urine Negative (Negative); THC Screen Urine Negative (Negative)
--- NOTE | 2022-04-25 23:21 | ECG_ITS ---
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 Measurements Intervals [place] Rate: 69 P: 73 [place]: 181 QRS: -11 QRSD: 93 T: 78 QT: 382 QTc: 410 Interpretive Statements SINUS RHYTHM LOW QRS VOLTAGE IN PRECORDIAL LEADS Compared to ECG 07/21/2017 14:02:24 Low QRS voltage now present Incomplete right bundle-branch block now present Sinus arrhythmia no longer present T-wave abnormality no longer present Electronically Signed On 04-26-2022 13:54:55 CDT by Yumiko Cyr M.D. [id number]
[2022-04-25 23:23] LABS: Free T4 Free Thyroxine 1.01 ng/dL (0.82-1.77)
[2022-04-25 23:30] VITALS: RESP 15
--- NOTE | 2022-04-26 00:49 | PC.NURSE ---
@[email or web address]- Left a voice mail for Bernard Nichols for a copy of [facility] paperwork. Spoke with [facility] living and was informed that he is listed, but the nurse did not have a copy of legal papers.
--- NOTE | 2022-04-26 05:09 | PC.NURSE ---
Spoke with Bernard Nichols and explained that the ER needs the actual Guardianship paperwork. He will fax this information to [facility] ER this morning. He states that he does not have a fax machine at home but will go into town and get it sent.
--- NOTE | 2022-04-26 07:10 | PC.NURSE ---
pt resting in bed, lights dimmed. remains in line of sight of sitter
--- NOTE | 2022-04-26 08:04 | PC.NURSE ---
pt speaking with physician. reports she has had feelings of depression and suicidal ideation. denies current suicidal ideation.
[2022-04-26 08:13] VITALS: BP 152/80; PULSE 70; RESP 16; O2SAT 97
[2022-04-26 11:27] VITALS: BP 142/92; PULSE 85; RESP 18; O2SAT 92
--- NOTE | 2022-04-26 11:28 | PC.NURSE ---
report called to JACQUELYN Richard at [facility], [place], [place]
== END 2022-04-26 12:18 ==
PROVIDERS: Emergency Medicine; Emergency Provider Family Medicine; PCP Family Medicine
DX: F32.A Depression, unspecified (principal); R45.851 Suicidal ideations
CPT/HCPCS: 70450; 71045; 80053; 80306; 80307; 81003; 83690; 84439; 84443; 85025; 87426; 93005; 99285

== ENCOUNTER 2022-07-24 22:02 | Emergency (ER) | payer MEDICAID, SELFPAY ==
[2022-07-24 22:08] VITALS: BP 177/97; PULSE 90; RESP 18; TEMP 37.2; O2SAT 95; BMI 25.4
--- NOTE | 2022-07-24 22:10 | CTR_ITS ---
PROCEDURE INFORMATION: Exam: CT Abdomen And Pelvis With Contrast Exam date and time: 07/24/2022 11:20 PM Age: 67 years old Clinical indication: Abdominal pain; Generalized; Additional info: Abd pain TECHNIQUE: Imaging protocol: Computed tomography of the abdomen and pelvis with contrast. Radiation optimization: All CT scans at this facility use at least one of these dose optimization techniques: automated exposure control; mA and/or kV adjustment per patient size (includes targeted exams where dose is matched to clinical indication); or iterative reconstruction. Contrast material: OMNI 350; Contrast volume: 100 ml; Contrast route: INTRAVENOUS (IV); COMPARISON: CT kidney stone [id number] 12/02/2021 6:44 PM RADIATION DOSE METRICS: Total DLP (mGy-cm): 427.2 FINDINGS: Lungs: Mild lung base atelectasis or scarring. Diaphragm: Small hiatal hernia. Liver: Unremarkable. No enhancing mass. Gallbladder and bile ducts: Multiple small gallstones are present. Pancreas: Unremarkable with no suspicious mass. No ductal dilation. Spleen: The spleen is not enlarged. No suspicious enhancing mass is noted. Adrenal glands: Normal. No mass. Kidneys and ureters: No solid renal mass or hydronephrosis. Stomach and bowel: Very fecal filled colon. No small bowel obstruction, abscess or free air. No bowel hernia. Appendix: No evidence of appendicitis. Intraperitoneal space: See Stomach and bowel finding. Vasculature: Advanced diffuse vascular calcification noted. Lymph nodes: No enlarged lymph nodes. Urinary bladder: Unremarkable as visualized. Reproductive: Retroflexed uterus. Bones/joints: [id number] spine degenerative change. T12 and L1 old compressions. Soft tissues: Small fat umbilical hernia. CT/CT abdomen pelvis w con* [id number] IMPRESSION: 1. No high-grade small bowel obstruction, abscess or free air. 2. Cholelithiasis, constipation, multiple other chronic findings above.
--- NOTE | 2022-07-24 22:12 | ED_ITS ---
HPI - Abdominal Pain General: Chief Complaint: Abdominal Pain Stated Complaint: lower abdominal pain Time Seen by Provider: 07/24/22 22:04 Source: patient Mode of arrival: ambulatory Limitations: no limitations History of Present Illness: 67-year-old female is here from assisted living states she has had abdominal cramping along with some nausea throughout the day. States the pain is cramping rates it a 3 out of 10 denies any nausea denies any fever she denies any worsening improving factors. Denies any chest pain. Associated Symptoms: Denies chills, dysuria and fever(s) Review of Systems Const: Denies: fever(s), chills, body aches or change in appetite Eyes: Denies: blurry vision or eye discomfort ENMT: Denies: throat pain or dental pain Card: Denies: chest pain Resp: Denies: dyspnea GI: Reports: abdominal pain : Denies: dysuria Musc: Denies: neck pain or back pain Skin/Breast: Denies: rash Neuro: Denies: headache(s) Psych: Denies: depression Jesus/Lymph: Denies: easy bruising All/Imm: Denies: urticaria PFSH ED PFSH: Medical History Well woman exam with routine gynecological exam Surgical History H/O dilation and curettage S/P appendectomy Family History Sister Diabetes Mother Heart disease Thyroid condition Clotting disorder Father Hypertension Brain aneurysm Denies family history of Colon cancer Ovarian cancer Breast cancer Anesthesia complication Bleeding disorder Uterine cancer Stroke Social History Smoking and tobacco status: never smoked Alcohol intake: never Physical Exam Const: COMMON NORMALS: no acute distress, patient oriented x3 and healthy appearing HENMT: COMMON NORMALS: normocephalic and atraumatic HEAD & SCALP: norm ocephalic and atraumatic Eye: COMMON NORMALS: Equal, round and reactive pupils present and EOMs intact bilaterally PUPIL: Yes Equal, round and reactive pupils present Neck/C-Spine: COMMON NORMALS: full ROM and supple Chest: COMMONS NORMALS: normal inspection of the chest and normal palpation of entire chest wall Resp: COMMON NORMALS: normal respiratory effort, No retractions, No use of accessory muscles and clear to auscultation bilaterally AUSCULTATION: clear to auscultation bilaterally Cardio: COMMON NORMALS: regular rate, regular rhythm and No murmurs present (Cardio) RATE: regular rate RHYTHM: regular rhythm GI: COMMON NORMALS: Normal to inspection, nondistended, normoactive bowel sounds present, Soft to palpation, non-tender and no masses PALPATION: Yes Soft to palpation Extremity: COMMON NORMALS: normal to inspection and full ROM Neuro: COMMON NORMALS: patient oriented x3, moves all extremities and no focal motor deficits Psych: COMMON NORMALS: mental status grossly normal, Normal thought process present and cooperative THOUGHT PROCESS: Normal thought process present Skin: COMMON NORMALS: no rashes or lesions noted and no wounds GENERAL SKIN EXAM: no rashes or lesions noted Course Vital Signs: Vital signs: Vital Signs Temperature 99.0 F 07/24/22 22:08 Pulse Rate 94 07/25/22 00:29 Respiratory Rate 18 07/24/22 22:08 Blood Pressure 122/88 07/25/22 00:29 Pulse Oximetry 96 07/25/22 00:29 Oxygen Delivery Me thod 07/24/22 23:00 MDM - Abdominal Pain Medical Decision Making Patient presents here with abdominal cramping her blood work CT is normal we will place her on Protonix along with nausea meds she is stable for discharge she is to follow-up with her PCP and return if worsening. Lab Data 07/24/22 22:20 07/24/22 22:20 Labs/Radiology: Radiology Impressions Abdomen/Pelvis CT 07/24/22 22:10 IMPRESSION: 1. No high-grade small bowel obstruction, abscess or free air. 2. Cholelithiasis, constipation, multiple other chronic findings above. Laboratory Results WBC 4.7 10^3/uL (4.0-10.0) 07/24/22 22:20 RBC 4.05 10^6/uL (4.1-5.3) L 07/24/22 22:20 Hgb 12.2 g/dL (11.5-15.3) 07/24/22 22:20 Hct 37.2 % (37.0-47.0) 07/24/22 22:20 MCV 91.9 fl (81-99) 07/24/22 22:20 MCH 30.1 pg (28.0-34.0) 07/24/22 22:20 MCHC 32.8 g/dL (30.0-36.0) 07/24/22 22:20 RDW 12.9 % (12.1-15.1) 07/24/22 22:20 Plt Count 111 10^3/cmm (130-400) L 07/24/22 22:20 MPV 10.7 fL (7.4-10.4) H 07/24/22 22:20 Neut % (Auto) 70.1 % 07/24/22 22:20 Lymph % (Auto) 17.0 % 07/24/22 22:20 [place] % (Auto) 8.3 % 07/24/22 22:20 Eos % (Auto) 4.0 % 07/24/22 22:20 Baso % (Auto) 0.4 % 07/24/22 22:20 Neut # (Auto) 3.30 10^3/uL (1.8-7.7) 07/24/22 22:20 Lymph # (Auto) 0.8 10^3/uL (0.8-4.8) 07/24/22 22:20 [place] # (Auto) 0.4 10^3/uL (0.2-0.9) 07/24/22 22:20 Eos # (Auto) 0.2 10^3/uL (0.0-0.8) 07/24/22 22:20 Baso # (Auto) 0.0 10^3/uL (0.0-0.1) 07/24/22 22:20 Nucleated RBC % (auto) 0 % 07/24/22 22:20 Nucleated RBCs # 0.0 /100WBC 07/24/22 22:20 Sodium 134 mmol/L (136-145) L 07/24/22 22:20 Potassium 3.6 mmol/L (3.5-5.1) 07/24/22 22:20 Chloride 101 mmol/L (98-107) 07/24/22 22:20 Carbon Dioxide 21 mmol/L (22-29) L 07/24/22 22:20 Anion Gap 15.6 (5-19) 07/24/22 22:20 BUN 15 mg/dL (8-23) 07/24/22 22:20 Creatinine 0.7 mg/dL (0.5-0.9) 07/24/22 22:20 GFR Calculation 83.7 mL/min (90-130) L 07/24/22 22:20 Glucose 188 mg/dL (65-115) H 07/24/22 22:20 Calculated Osmolality 284 mOsm/kg (285-295) L 07/24/22 22:20 Calcium 9.1 mg/dL (8.5-10.5) 07/24/22 22:20 Total Bilirubin 0.3 mg/dL (0.15-1.2) 07/24/22 22:20 AST 13 U/L (0-32) 07/24/22 22:20 ALT 15 U/L (0-33) 07/24/22 22:20 Alkaline Phosphatase 106 U/L (35-105) H 07/24/22 22:20 Total Protein 7.0 g/dL (6.6-8.7) 07/24/22 22:20 Albumin 3.9 g/dL (3.5-5.2) 07/24/22 22:20 Globulin 3.1 g/dL (1.3-4.6) 07/24/22 22:20 Lipase 61 U/L (13-60) H 07/24/22 22:20 Discharge Plan Discharge Patient Disposition: Home Clinical Impression: Abdominal pain Condition: Stable Prescriptions: New Protonix 40 mg tablet,delayed release (DR/EC) 40 mg PO DAILY Qty: 60 0RF ondansetron 4 mg tablet,disintegrating 4 mg PO Q6H PRN (Reason: nausea and vomiting) Qty: 14 0RF No Action Stomach medication PO BID docusate sodium [Colace] 100 mg capsule 100 mg PO DAILY Lantus Solostar U-100 Insulin 100 unit/mL (3 mL) insulin pen 10 unit SUBCUT DAILY lorazepam [Ativan] 1 mg tablet 1 mg PO DAILY PRN quetiapine [Seroquel] 400 mg tablet 400 mg PO .at hs hydrocodone-acetaminophen 5-325 mg tablet 1 tab PO Q8H PRN (Reason: pain (scale score 7-10)) Qty: 10 0RF Discharge Orders: Discharge ED (Routine); Ordered 07/24/22 Ordered By: Aneta Love Referrals: Chelita Alcaraz MD [Primary Care Provider] - 4-7 days Discharge Diet: Advance as tolerated Discharge Activity: Resume usual activity Patient Instructions: Abdominal Pain (ED) Coding Level of Care Code ED Building Coordinator for Chg Fwd Exam Comprehensive
[2022-07-24] MEDS: sodium chloride 0.9% 1,000 ML 999 ML IV (22:25)
[2022-07-24] MEDS: ondansetron 2 mg/ML SDV 2 mL 4 MG IVP (22:26)
[2022-07-24 22:27] LABS: Basophils % 0.4 %; Eosinophils # 0.2 10^3/uL (0.0-0.8); Hematocrit 37.2 % (37.0-47.0); Hemoglobin 12.2 g/dL (11.5-15.3); Lymphocytes # 0.8 10^3/uL (0.8-4.8); Mean Corpuscular HGB Conc 32.8 g/dL (30.0-36.0); Mean Corpuscular Hemoglobin 30.1 pg (28.0-34.0); Mean Corpuscular Volume 91.9 fl (81-99); Mean Platelet Volume 10.7 fL (7.4-10.4); Monocytes # 0.4 10^3/uL (0.2-0.9); Monocytes % 8.3 %; Neutrophils % 70.1 %; Nucleated Red Blood Cells % 0 %; Platelet Count 111 10^3/cmm (130-400); Red Blood Count 4.05 10^6/uL (4.1-5.3); Red Cell Distribution Width 12.9 % (12.1-15.1); White Blood Count 4.7 10^3/uL (4.0-10.0)
[2022-07-24 22:47] LABS: Alanine Aminotransferase 15 U/L (0-33); Albumin Level 3.9 g/dL (3.5-5.2); Alkaline Phosphatase 106 U/L (35-105); Anion Gap 15.6 (5-19); Aspartate Amino Transferase 13 U/L (0-32); Blood Urea Nitrogen 15 mg/dL (8-23); Calcium 9.1 mg/dL (8.5-10.5); Carbon Dioxide 21 mmol/L (22-29); Chloride 101 mmol/L (98-107); Creatinine Clr Calc Pharmacy 65.1635; Globulin 3.1 g/dL (1.3-4.6); Glomerular Filtration Rate 83.7 mL/min (90-130); Glucose 188 mg/dL (65-115); Lipase 61 U/L (13-60); Osmolality Calculated 284 mOsm/kg (285-295); Potassium 3.6 mmol/L (3.5-5.1); Sodium 134 mmol/L (136-145); Total Bilirubin 0.3 mg/dL (0.15-1.2)
[2022-07-24 23:00] VITALS: BP 141/88; PULSE 90; O2SAT 94
[2022-07-24] MEDS: iohexol 350 mg/mL 500 mL Btl (per mL) IV (23:12)
[2022-07-25 00:29] VITALS: BP 122/88; PULSE 94; O2SAT 96
== END 2022-07-25 00:03 | disposition home or self-care (01) ==
PROVIDERS: Emergency Provider Emergency Medicine; PCP Family Medicine
DX: R10.9 Unspecified abdominal pain (principal); K80.20 Calculus of gallbladder without cholecystitis without obstruction; K59.00 Constipation, unspecified; Z79.4 Long term (current) use of insulin
CPT/HCPCS: 74177; 80053; 83690; 85025; 96361; 96374; 99285; J2405; J7030; Q9967

== ENCOUNTER 2022-10-20 14:23 | Emergency (ER) | payer MEDICAID, SELFPAY ==
[2022-10-20 14:27] VITALS: BMI 24.0
[2022-10-20 14:33] VITALS: BP 157/103; PULSE 80; RESP 14; RESP 18; O2SAT 96
--- NOTE | 2022-10-20 14:44 | W.ED.AMS ---
HPI - Altered Mental Status General: Chief Complaint: Altered Mental Status Stated Complaint: AMS/ HYPERTENSION Time Seen by Provider: 10/20/22 14:35 History of Present Illness: Patient is a 67-year-old female comes to the ED via EMS for altered mental status. Patient is a resident of [facility]. She is alert and oriented and answering all my questions accordingly. Patient states she left her facility today and wanted to go to [employer] to see what stuff they have in the store. She then told some workers there is [employer] about her half sister in [place] and concerns that she could be trying to steal money from her. People at [employer] told patient to go to the police station to file a police report, so patient went there to the police station to file a report. Police thought patient appeared a little disoriented and brought her here to the ED for evaluation. Patient states that she is on medications and takes them daily. Patient denies any complaints. Per [facility]-- Nurse called facility and they told us that patient is at her mental baseline. No recent acute change in patient's mental status and she was at the facility this morning. She tends to have some erratic behaviors at times. She does this every once in a while where she signs out from the facility and goes around town and gets brought back to the facility. Review of Systems Const: Denies: fever(s), chills or fatigue Eyes: Denies: change in vision or eye discomfort ENMT: Denies: throat pain, odynophagia, nasal discharge or nasal congestion Card: Denies: chest pain, palpitations, edema, swelling of feet/ankles, dyspnea on exertion or orthopnea Resp: Denies: dyspnea, productive cough or non-productive cough GI: Denies: abdominal pain, nausea, vomiting, diarrhea, constipation or hematochezia : Denies: flank pain, dysuria or hematuria Musc: Denies: neck pain, back pain or extremity swelling Skin/Breast: Denies: rash or new lesions Neuro: Reports: confusion (Mild confusion with flight of ideas); Denies: headache(s), numbness in extremities or weakness in extremities PFS ED PFSH: Medical History Well woman exam with routine gynecological exam Surgical History H/O dilation and curettage S/P appendectomy Family History Sister Diabetes Mother Heart disease Thyroid condition Clotting disorder Father Hypertension Brain aneurysm Denies family history of Colon cancer Ovarian cancer Breast cancer Anesthesia complication Bleeding disorder Uterine cancer Stroke Social History Smoking and tobacco status: never smoked Alcohol intake: never Physical Exam Const: COMMON NORMALS: no acute distress, patient oriented x3 and alert HENMT: COMMON NORMALS: normocephalic and atraumatic HEAD & SCALP: normocephalic and atraumatic Eye: COMMON NORMALS: conjunctivae normal GENERAL EYE: appearance normal, both eyes and all related structures CONJUNCTIVA: Yes conjunctivae normal Resp: COMMON NORMALS: normal respiratory effort, No retractions, No use of accessory muscles and clear to auscultation bilaterally AUSCULTATION: clear to auscultation bilaterally Cardio: COMMON NORMALS: regular rate, regular rhythm, S1 normal heart sound present, S2 normal heart sound present, No murmurs present (Cardio) and Peripheral pulses 2+ throughout RATE: regular rate RHYTHM: regular rhythm HEART SOUNDS: S1 normal heart sound present and S2 normal heart sound present PERIPHERAL PULSES: Peripheral pulses 2+ throughout GI: COMMON NORMALS: Normal to inspection, nondistended, normoactive bowel sounds present, Soft to palpation and non-tender PALPATION: Yes Soft to palpation : COMMON NORMALS: Yes no CVA tenderness BLADDER/KIDNEY EXAM: Yes no CVA tenderness Back/Pelvis: COMMON NORMALS: no CVA tenderness Extremity: COMMON NORMALS: normal to inspection Neuro: COMMON NORMALS: patient oriented x3, CN's II-XII intact bilaterally, moves all extremities, no focal motor deficits and no sensory deficits noted SENSORIUM/ORIENTATION: Yes alert Skin: COMMON NORMALS: no rashes or lesions noted GENERAL SKIN EXAM: no rashes or lesions noted Course Vital Signs: Vital signs: Vital Signs Pulse Rate 80 10/20/22 14:33 Respiratory Rate 14 10/20/22 14:33 Blood Pressure 157/103 10/20/22 14:33 Pulse Oximetry 96 10/20/22 14:33 Oxygen Delivery Me thod 10/20/22 14:33 MDM - Altered Mental Status Medical Decision Making Patient is a 67-year-old female comes to the ED via EMS for altered mental status. Patient is a resident of [facility]. She is alert and oriented and answering all my questions accordingly. Patient states she left her facility today and wanted to go to [employer] to see what stuff they have in the store. She then told some workers there is [employer] about her half sister in [place] and concerns that she could be trying to steal money from her. People at [employer] told patient to go to the police station to file a police report, so patient went there to the police station to file a report. Police thought patient appeared a little disoriented and brought her here to the ED for evaluation. Vitals are stable. Exam of patient is benign and she is alert and oriented x3. No neurodeficits seen. She does have some flight of ideas when talking. Rest of exam is benign. Nurse called facility and they told us that patient is at her mental baseline. No recent acute change in patient's mental status and she was at the facility this morning. She tends to have some erratic behaviors at times. She does this every once in a while where she signs out from the facility and goes around town and gets brought back to the facility. Patient diagnosed with mental status at baseline and was stable for discharge back home to assisted living facility. Return to ED precautions given. Patient understood agree with plan. Discharge Plan Discharge Patient Disposition: Home Clinical Impression: Mental status at baseline Condition: Stable Prescriptions: No Action Stomach medication PO BID docusate sodium [Colace] 100 mg capsule 100 mg PO DAILY Lantus Solostar U-100 Insulin 100 unit/mL (3 mL) insulin pen 10 unit SUBCUT DAILY lorazepam [Ativan] 1 mg tablet 1 mg PO DAILY PRN quetiapine [Seroquel] 400 mg tablet 400 mg PO .at hs Protonix 40 mg tablet,delayed release (DR/EC) 40 mg PO DAILY Qty: 60 0RF ondansetron 4 mg tablet,disintegrating 4 mg PO Q6H PRN (Reason: nausea and vomiting) Qty: 14 0RF hydrocodone-acetaminophen 5-325 mg tablet 1 tab PO Q8H PRN (Reason: pain (scale score 7-10)) Qty: 10 0RF Discharge Orders: Discharge ED (Routine); Ordered 10/20/22 Ordered By: Darrick Gonzalez Referrals: Chelita Alcaraz MD [Primary Care Provider] - Discharge Diet: Regular Discharge Activity: Increase activity as tolerated Activity Restrictions/Additional Instructions: Follow-up with medical provider as directed in the next 5 to 7 days for reevaluation. Continue taking all home medications as previously prescribed. Return to the ER or your medical provider if condition worsens. Please read and understand discharge instructions. Thank you for choosing [facility] for your healthcare needs today. Please realize this is an emergency room and that we are providing you with a medical screening exam and this may not be complete and all inclusive of all the testing and or work up that you may need to determine your ailment or severity of your illness. It is very important that you follow up as instructed or that you return to the Emergency Department should you have concerns or if your condition changes or worsens in any way. Coding Level of Care Code ED Train Gateman for Randal Kirby
--- NOTE | 2022-10-20 14:49 | PC.NURSE ---
REPORT FROM FACILITY GIVEN TO PROVIDER. PATIENT KNEE COVERED WITH TELFA AND COBAN.
== END 2022-10-20 15:42 | disposition home or self-care (01) ==
PROVIDERS: Emergency Provider Physician Assistant; PCP Family Medicine
DX: Z03.89 Encounter for observation for other suspected diseases and conditions ruled out (principal); Z79.4 Long term (current) use of insulin
CPT/HCPCS: 99282

== ENCOUNTER 2022-12-12 13:25 | Outpatient (CLI) | payer MEDICAID, SELFPAY ==
--- NOTE | 2022-12-12 13:45 | MM_ITS ---
WS: [id number] BILATERAL 3D TOMOSYNTHESIS DIGITAL SCREENING MAMMOGRAPHY WITH CAD CLINICAL INFORMATION: SCREENING HISTORY: Screening mammogram. No current complaints. COMPARISON: 2021 TECHNIQUE: Bilateral CC and MLO views. FINDINGS: Scattered fibroglandular densities bilaterally. No suspicious focal mass, asymmetry, calcifications, or architectural distortion. No evidence of malignancy. A few incidental punctate calcifications. Vas cular calcification. MM/[place] [id number] IMPRESSION: BI-RADS: 2-Benign FOLLOW UP: 1 Year Follow-up Recommend return to annual screening mammography.
== END 2022-12-12 13:26 | disposition home or self-care (01) ==
PROVIDERS: PCP Family Medicine; Visit Provider Family Medicine
DX: Z12.31 Encounter for screening mammogram for malignant neoplasm of breast (principal)
CPT/HCPCS: 77063; 77067

== ENCOUNTER 2023-01-26 11:03 | Emergency (ER) | payer MEDICAID, SELFPAY ==
[2023-01-26 11:08] VITALS: PULSE 96; RESP 18; TEMP 37.1; O2SAT 95; BMI 25.4
--- NOTE | 2023-01-26 14:08 | XRR_ITS ---
PROCEDURE INFORMATION: Exam: XR Right Knee Exam date and time: 01/26/2023 2:21 PM Age: 67 years old Clinical indication: Injury or trauma; Fall; Blunt trauma; Knee; Right; Additional info: Fall with pain TECHNIQUE: Imaging protocol: Radiologic exam of the right knee. Views: 3 views. COMPARISON: No relevant prior studies available. FINDINGS: Bones/joints: No fracture or dislocation. Osseous structures and joint spaces show no significant abnormality. No significant suprapatellar effusion. Soft tissues: Soft tissues show no significant focal abnormality. XR/XR knee RT 3V* [id number] IMPRESSION: No fra acute osseous abnormality. cture or
--- NOTE | 2023-01-26 14:08 | XRR_ITS ---
PROCEDURE INFORMATION: Exam: XR Facial Bones, Minimum of 3 Views, Complete Exam date and time: 01/26/2023 2:18 PM Age: 67 years old Clinical indication: Injury or trauma; Fall; Blunt trauma (contusions or hematomas); Other: Left zygoma; Additional info: Fall and contusion left zygoma TECHNIQUE: Imaging protocol: XR of the facial bones, minimum of 3 views. Complete exam. COMPARISON: CT head wo con* [id number] 04/25/2022 5:19 PM FINDINGS: Sinuses: Incidental note is made of diffuse opacity or mucosal sinus disease of the right maxillary sinus without air-fluid level. Bones/joints: No fracture identified. Osseous structures show no significant abnormality. Nasal septum is midline. Soft tissues: Unremarkable. XR/XR facial bones min 3V* [id number] IMPRESSION: 1. No radiographic evidence for fracture, attention left side. 2. Diffuse opacity or mucosal sinus disease of the right maxillary sinus without air-fluid level.
--- NOTE | 2023-01-26 14:08 | XRR_ITS ---
PROCEDURE INFORMATION: Exam: XR Right Hand Exam date and time: 01/26/2023 2:15 PM Age: 67 years old Clinical indication: Injury or trauma; Fall; Blunt trauma (contusions or hematomas); Hand; Right; Additional info: Fall with bruising and pain TECHNIQUE: Imaging protocol: Radiologic exam of the right hand. Views: 3 or more views. COMPARISON: No relevant prior studies available. FINDINGS: Bones/joints: No fracture or dislocation. Osseous structures and joint spaces show no significant abnormality. No abnormal soft tissue calcification is seen. Soft tissues: No significant focal soft tissue abnormality. XR/XR hand RT min 3V* [id number] IMPRESSION: No fracture or acute osseous abnormality.
[2023-01-26] MEDS: tetanus-dipt-pertussis 0.5 mL SDV IM (14:55)
--- NOTE | 2023-01-26 15:15 | W.ED.FALL ---
HPI - Fall General: Chief Complaint: Fall Stated Complaint: fall, everywhere hurts Time Seen by Provider: 01/26/23 12:40 History of Present Illness: She reports that she was in the [employer] parking lot today and tripped and fell forward onto her right hand, right knee also hitting her right side face. She reports that she did not have a loss of consciousness. She denies any changes in her vision. Her most painful thing currently is her right hand. She denies that she is up-to-date on her tetanus vaccination. Associated symptoms-after fall: Denies chest pain Review of Systems Const: Denies: fever(s) or chills Eyes: Denies: change in vision, blurry vision or blind spots Card: Denies: chest pain or palpitations Resp: Denies: dyspnea, productive cough or non-productive cough Musc: Reports: extremity pain and joint pain Skin/Breast: Reports: other (Superficial abrasions bilateral hands, right knee, right side base) [facility] ED PFSH: Medical History Well woman exam with routine gynecological exam Surgical History H/O dilation and curettage S/P appendectomy Family History Sister Diabetes Mother Heart disease Thyroid condition Clotting disorder Father Hypertension Brain aneurysm Denies family history of Colon cancer Ovarian cancer Breast cancer Anesthesia complication Bleeding disorder Uterine cancer Stroke Social History Smoking and tobacco status: never smoked Alcohol intake: never Substance/Drug Use: never Physical Exam Const: COMMON NORMALS: no acute distress, patient oriented x3 and alert OTHER: Patient is somewhat tearful when talking about the fall. Eye: COMMON NORMALS: Equal, round and reactive pupils present, EOMs intact bilaterally and conjunctivae normal CONJUNCTIVA: Yes conjunctivae normal PUPIL: Yes Equal, round and reactive pupils present OTHER: There is an abrasion just below the right eye over the zygoma. This does not appear to encroach upon the eye. Neck/C-Spine: COMMON NORMALS: no JVD Resp: COMMON NORMALS: normal respiratory effort, No use of accessory muscles and clear to auscultation bilaterally AUSCULTATION: clear to auscultation bilaterally Cardio: COMMON NORMALS: no JVD, regular rate, regular rhythm, S1 normal heart sound present and S2 normal heart sound present RATE: regular rate RHYTHM: regular rhythm HEART SOUNDS: S1 normal heart sound present and S2 normal heart sound present Extremity: NARRATIVE EXTREMITY EXAM: Moderate bruising and some swelling to the right dorsal hand over the fourth and fifth metacarpals. Neuro: COMMON NORMALS: patient oriented x3, CN's II-XII intact bilaterally, moves all extremities and no focal motor deficits SENSORIUM/ORIENTATION: Yes alert Course Vital Signs: Vital signs: Vital Signs Temperature 98.7 F 01/26/23 11:08 Pulse Rate 96 01/26/23 11:08 Respiratory Rate 18 01/26/23 11:08 Pulse Oximetry 95 01/26/23 11:08 Oxygen Delivery Me thod Room Air 01/26/23 11:08 MDM - Fall Medical Decision Making Consider contusion versus fracture of the hand, contusion versus fracture of the zygoma, contusion versus fracture of the right knee. Wounds are cleansed and dressed. Tetanus vaccine is administered to update. X-rays? Discharge patient home. Discussed conservative care. Advised to follow-up with primary care provider as needed. Return to the ER for new or worsening symptoms. Lab Data Radiology Impressions Face X-Ray 01/26/23 14:08 IMPRESSION: 1. No radiographic evidence for fracture, attention left side. 2. Diffuse opacity or mucosal sinus disease of the right maxillary sinus without air-fluid level. Hand X-Ray 01/26/23 14:08 IMPRESSION: No fracture or acute osseous abnormality. Knee X-Ray 01/26/23 14:08 IMPRESSION: No fra acute osseous abnormality. cture or Discharge Plan Discharge Patient Disposition: Home Clinical Impression: Fall, Contusion of face, Contusion of hand, Contusion of knee Condition: Stable Prescriptions: New doxycycline hyclate 100 mg capsule 100 mg PO BID 5 Days Qty: 10 0RF No Action Stomach medication PO BID docusate sodium [Colace] 100 mg capsule 100 mg PO DAILY Lantus Solostar U-100 Insulin 100 unit/mL (3 mL) insulin pen 10 unit SUBCUT DAILY lorazepam [Ativan] 1 mg tablet 1 mg PO DAILY PRN quetiapine [Seroquel] 400 mg tablet 400 mg PO .at hs Protonix 40 mg tablet,delayed release (DR/EC) 40 mg PO DAILY Qty: 60 0RF ondansetron 4 mg tablet,disintegrating 4 mg PO Q6H PRN (Reason: nausea and vomiting) Qty: 14 0RF hydrocodone-acetaminophen 5-325 mg tablet 1 tab PO Q8H PRN (Reason: pain (scale score 7-10)) Qty: 10 0RF Discharge Orders: Discharge ED (Routine); Ordered 01/26/23 Ordered By: Pratima Schrader Referrals: Chelita Alcaraz MD [Primary Care Provider] - Discharge Diet: Usual diet Discharge Activity: Resume usual activity Activity Restrictions/Additional Instructions: Your x-rays did not show any evidence of bony fracture. You were updated on your tetanus vaccination today. I recommend conservative treatment at home including rest, ice, elevation. Keep the wounds clean and dry. Monitor closely for signs of infection. Follow-up with your primary care provider as needed. Return to the ER for new or worsening symptoms. Coding Level of Care Code ED Occupational Therapist'S Assistant for Randal Kirby
[2023-01-26] MEDS: neomycin-poly-bacitracin oint 28 gm 1 APPLIC TOPICAL (16:22)
[2023-01-26 16:25] VITALS: PULSE 80; RESP 16; O2SAT 95
== END 2023-01-26 16:26 | disposition home or self-care (01) ==
PROVIDERS: Emergency Provider Nurse Practitioner Family; PCP Family Medicine
DX: S00.83XA Contusion of other part of head, initial encounter (principal); S60.221A Contusion of right hand, initial encounter; S80.01XA Contusion of right knee, initial encounter; W01.0XXA Fall on same level from slipping, tripping and stumbling without subsequent striking against object, initial encounter; Y92.481 Parking lot as the place of occurrence of the external cause; Z23 Encounter for immunization
CPT/HCPCS: 70150; 73130; 73562; 90471; 90715; 99284

== ENCOUNTER 2023-04-03 18:03 | Emergency (ER) | payer MEDICAID, SELFPAY ==
[2023-04-03 18:03] VITALS: BMI 23.1
[2023-04-03 18:07] VITALS: BP 156/102; PULSE 93; RESP 16; TEMP 37.2; O2SAT 93
--- NOTE | 2023-04-03 18:13 | PC.NURSE ---
EMS reports BS enroute was 187
--- NOTE | 2023-04-03 18:18 | ECG_ITS ---
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 Measurements Intervals Royal Rate: 93 P: 64 MN: 172 QRS: 1 QRSD: 88 T: 69 QT: 367 QTc: 459 Interpretive Statements SINUS RHYTHM LOW QRS VOLTAGE IN PRECORDIAL LEADS [QRS DEFLECTION < 1.0 mV IN CHEST LEADS] PATTERN CONSISTENT WITH PULMONARY DISEASE Compared to ECG 04/25/2022 23:21:23 No significant changes Electronically Signed On 04-04-2023 9:47:32 CDT by Sen Ang M.D. [id number]
--- NOTE | 2023-04-03 18:18 | XRR_ITS ---
PROCEDURE INFORMATION: Exam: XR Chest Exam date and time: 04/03/2023 6:24 PM Age: 68 years old Clinical indication: Injury or trauma; Fall; Blunt trauma (contusions or hematomas); Injury date: Today; Patient HX: Syncope ; PT fell TECHNIQUE: Imaging protocol: Radiologic exam of the chest. Views: 1 view. COMPARISON: CR XR chest 1V portable [id number] 04/25/2022 5:28 PM FINDINGS: Lungs: Left upper lobe calcified granuloma. Pleural spaces: Unremarkable. No pleural effusion. No pneumothorax. Heart/Mediastinum: Unremarkable. No cardiomegaly. Bones/joints: Unremarkable. XR/XR chest 1V portable [id number] IMPRESSION: No acute findings.
--- NOTE | 2023-04-03 18:18 | CTR_ITS ---
PROCEDURE INFORMATION: Exam: CT Maxillofacial Without Contrast Exam date and time: 04/03/2023 6:50 PM Age: 68 years old Clinical indication: Injury or trauma; Fall; Blunt trauma (contusions or hematomas); Nose and orbit/periorbital; Right; Additional info: Fall trauma right orbit region, syncope TECHNIQUE: Imaging protocol: Computed tomography of the face without contrast. Radiation optimization: All CT scans at this facility use at least one of these dose optimization techniques: automated exposure control; mA and/or kV adjustment per patient size (includes targeted exams where dose is matched to clinical indication); or iterative reconstruction. REPORTING DATA: Count of CT and Cardiac NM exams in prior 12 months: This patient has received 2 known CTs and 0 known cardiac nuclear medicine studies in the 12 months prior to the current study. COMPARISON: CT head wo con* [id number] 04/25/2022 5:19 PM RADIATION DOSE METRICS: Total DLP (mGy-cm): 571 FINDINGS: Orbital cavities: Orbits are normal. Globes are unremarkable. Bones/joints: No acute fracture. Paranasal sinuses: Right maxillary sinus opacification and left maxillary sinus polypoid mucosal thickening. Soft tissues: Unremarkable. CT/CT facial bones wo con* [id number] IMPRESSION: 1. Negative for fracture or dislocation. 2. Right maxillary sinus opacification and left maxillary sinus polypoid mucosal thickening.
--- NOTE | 2023-04-03 18:18 | CTR_ITS ---
PROCEDURE INFORMATION: Exam: CT Head Without Contrast Exam date and time: 04/03/2023 6:50 PM Age: 68 years old Clinical indication: Injury or trauma; Fall; Blunt trauma (contusions or hematomas); Additional info: Syncope fall trauma TECHNIQUE: Imaging protocol: Computed tomography of the head without contrast. Radiation optimization: All CT scans at this facility use at least one of these dose optimization techniques: automated exposure control; mA and/or kV adjustment per patient size (includes targeted exams where dose is matched to clinical indication); or iterative reconstruction. REPORTING DATA: Count of CT and Cardiac NM exams in prior 12 months: This patient has received 2 known CTs and 0 known cardiac nuclear medicine studies in the 12 months prior to the current study. COMPARISON: CT head wo con* [id number] 04/25/2022 5:19 PM RADIATION DOSE METRICS: Total DLP (mGy-cm): 1097 FINDINGS: Brain: Moderate diffuse white matter disease likely reflecting chronic microvascular ischemic changes. Chronic bilateral punctate benign basal ganglia calcifications similar to prior exam. Cerebral ventricles: No ventriculomegaly. Paranasal sinuses: Paranasal sinus opacifications. Mastoid air cells: Visualized mastoid air cells are well aerated. Bones/joints: Unremarkable. No acute fracture. Soft tissues: Unremarkable. CT/CT head wo con* [id number] IMPRESSION: 1. Negative for intracranial hemorrhage or mass effect. 2. Moderate diffuse white matter disease likely reflecting chronic microvascular ischemic changes. 3. Paranasal sinus opacifications. 4. Chronic bilateral punctate benign basal ganglia calcifications similar to prior exam.
--- NOTE | 2023-04-03 18:20 | W.ED.SYNCOPE ---
HPI - Syncope General: Chief Complaint: Syncope Stated Complaint: lac to face and elbow post syncopal episode Time Seen by Provider: 04/03/23 18:04 History of Present Illness: Patient presents to the ER via EMS secondary to a fall/syncope while walking to [employer]. Patient has abrasion to her lower right nostril right elbow and bilateral knee region. Patient does not remember falling just remembers being on the ground. Patient is an insulin-dependent diabetic blood sugar in the field was 183. Fall was witnessed. Review of Systems General: Reports: 10 or more systems reviewed and unremarkable except in HPI and below PFSH ED PFSH: Medical History Well woman exam with routine gynecological exam Surgical History H/O dilation and curettage S/P appendectomy Family History Sister Diabetes Mother Heart disease Thyroid condition Clotting disorder Father Hypertension Brain aneurysm Denies family history of Colon cancer Ovarian cancer Breast cancer Anesthesia complication Bleeding disorder Uterine cancer Stroke Social History Smoking and tobacco status: never smoked Alcohol intake: never Substance/Drug Use: never Physical Exam Const: COMMON NORMALS: no acute distress, average body habitus, patient oriented x3, no limitations, healthy appearing, alert and well nourished HENMT: COMMON NORMALS: normocephalic, hearing grossly normal bilaterally, external ears normal and moist oral mucous membranes; head/scalp not atraumatic (Abrasion to right nose.) HEAD & SCALP: normocephalic; not atraumatic (Abrasion to right nose.) EXTERNAL EAR: Yes external ears normal Eye: COMMON NORMALS: Equal, round and reactive pupils present, EOMs intact bilaterally, conjunctivae normal and no scleral icterus (Tenderness with palpation over right lateral orbital region no overt crepit) CONJUNCTIVA: Yes conjunctivae normal PUPIL: Yes Equal, round and reactive pupils present Neck/C-Spine: COMMON NORMALS: full ROM, no lymphadenopathy, supple, no meningeal signs, no JVD and Thyroid normal THYROID: Thyroid normal Lymph: LYMPHATIC: no lymphadenopathy noted Chest: COMMONS NORMALS: normal inspection of the chest Resp: COMMON NORMALS: normal respiratory effort, No retractions, No use of accessory muscles and clear to auscultation bilaterally AUSCULTATION: clear to auscultation bilaterally Cardio: COMMON NORMALS: no JVD, regular rate, regular rhythm, S1 normal heart sound present, S2 normal heart sound present, No gallops present (Cardio), No clicks present (Cardio), No murmurs present (Cardio) and No rub (Cardio) RATE: regular rate RHYTHM: regular rhythm HEART SOUNDS: S1 normal heart sound present and S2 normal heart sound present GI: COMMON NORMALS: Normal to inspection, nondistended, normoactive bowel sounds present, Soft to palpation, non-tender, No hepatosplenomegaly present and no masses PALPATION: Yes Soft to palpation and Yes No hepatosplenomegaly present Extremity: NARRATIVE EXTREMITY EXAM: Abrasions to bilateral anterior knees. Neuro: COMMON NORMALS: patient oriented x3 SENSORIUM/ORIENTATION: Yes alert MENINGEAL SIGNS: Yes no meningeal signs Course Vital Signs: Vital signs: Vital Signs Temperature 99.0 F 04/03/23 18:07 Pulse Rate 808 H 04/03/23 20:29 Respiratory Rate 18 04/03/23 20:29 Blood Pressure 161/112 04/03/23 20:23 Pulse Oximetry 95 04/03/23 20:29 Oxygen Delivery Me thod Room Air 04/03/23 20:29 MDM - Syncope Medical Decision Making Patient was at a local restaurant and had a syncopal episode she fell and hit her face right elbow and both knees. She was worked up with chest x-ray, face facial CT, head CT, lab work. All of which were essentially negative for acute changes other than UA showing possible urinary tract infection. Patient will be treated for the urinary tract infection and discharged home to follow-up with her PCP Differential Diagnosis Unlikely syncope due to orthostatic hypotension, vasovagal syncope, complete atrioventricular block, subarachnoid hemorrhage, pulmonary embolism or dehydration Medical Records I reviewed the patient's medical records. Lab Data I reviewed the patient's lab results. 04/03/23 18:40 04/03/23 18:40 Radiology Impressions Chest X-Ray 04/03/23 18:18 IMPRESSION: No acute findings. Face CT 04/03/23 18:18 IMPRESSION: 1. Negative for fracture or dislocation. 2. Right maxillary sinus opacification and left maxillary sinus polypoid mucosal thickening. Head CT 04/03/23 18:18 IMPRESSION: 1. Negative for intracranial hemorrhage or mass effect. 2. Moderate diffuse white matter disease likely reflecting chronic microvascular ischemic changes. 3. Paranasal sinus opacifications. 4. Chronic bilateral punctate benign basal ganglia calcifications similar to prior exam. Laboratory Results WBC 4.88 10^3/uL (3.29-11.43) 04/03/23 18:40 RBC 4.35 10^6/uL (3.85-5.65) 04/03/23 18:40 Hgb 13.00 g/dL (11.27-16.99) 04/03/23 18:40 Hct 39.8 % (36-47) 04/03/23 18:40 MCV 91.5 fl (85-98) 04/03/23 18:40 MCH 29.9 pg (27-33) 04/03/23 18:40 MCHC 32.7 g/dL (30-55) 04/03/23 18:40 RDW 13.3 % (12.1-15.1) 04/03/23 18:40 Plt Count 122 10^3/cmm (157-399) L 04/03/23 18:40 MPV 11.5 fL (7.4-10.4) H 04/03/23 18:40 Neut % (Auto) 72.4 % 04/03/23 18:40 Lymph % (Auto) 16.6 % 04/03/23 18:40 Dickens % (Auto) 5.3 % 04/03/23 18:40 Eos % (Auto) 4.9 % 04/03/23 18:40 Baso % (Auto) 0.4 % 04/03/23 18:40 Neut # (Auto) 3.53 10^3/uL (1.8-7.7) 04/03/23 18:40 Lymph # (Auto) 0.8 10^3/uL (0.8-4.8) 04/03/23 18:40 Dickens # (Auto) 0.3 10^3/uL (0.2-0.9) 04/03/23 18:40 Eos # (Auto) 0.2 10^3/uL (0.0-0.8) 04/03/23 18:40 Baso # (Auto) 0.0 10^3/uL (0.0-0.1) 04/03/23 18:40 Nucleated RBC % (auto) 0 % 04/03/23 18:40 Nucleated RBCs # 0.0 /100WBC 04/03/23 18:40 Sodium 140 mmol/L (136-145) 04/03/23 18:40 Potassium 3.9 mmol/L (3.5-5.1) 04/03/23 18:40 Chloride 104 mmol/L (98-107) 04/03/23 18:40 Carbon Dioxide 23 mmol/L (22-29) 04/03/23 18:40 Anion Gap 16.9 (5-19) 04/03/23 18:40 BUN 15 mg/dL (8-23) 04/03/23 18:40 Creatinine 1.0 mg/dL (0.5-0.9) H 04/03/23 18:40 GFR Calculation 55.3 mL/min (90-130) L 04/03/23 18:40 Glucose 179 mg/dL (65-115) H 04/03/23 18:40 POC Glucose 183 mg/dL (70-110) H 04/03/23 18:17 Calculated Osmolality 295 mOsm/kg (285-295) 04/03/23 18:40 Calcium 8.7 mg/dL (8.5-10.5) 04/03/23 18:40 Total Bilirubin 0.3 mg/dL (0.15-1.2) 04/03/23 18:40 AST 17 U/L (0-32) 04/03/23 18:40 ALT 11 U/L (0-33) 04/03/23 18:40 Alkaline Phosphatase 89 U/L (35-105) 04/03/23 18:40 Total Protein 7.3 g/dL (6.6-8.7) 04/03/23 18:40 Albumin 4.6 g/dL (3.5-5.2) 04/03/23 18:40 Globulin 2.7 g/dL (1.3-4.6) 04/03/23 18:40 Urine Color Yellow (Yellow) 04/03/23 19:15 Urine Appearance Clear (CLEAR) 04/03/23 19:15 Urine pH 6.5 (5-7) 04/03/23 19:15 Ur Specific Coy 1.010 (1.005-1.030) 04/03/23 19:15 Urine Protein Neg (Negative) 04/03/23 19:15 Urine Glucose (UA) Norm (Normal) 04/03/23 19:15 Urine Ketones 1+ (Negative) H 04/03/23 19:15 Urine Blood Neg (Negative) 04/03/23 19:15 Urine Nitrate Negative (Negative) 04/03/23 19:15 Urine Bilirubin Neg (Negative) 04/03/23 19:15 Urine Urobilinogen Neg mg/dL (Negative) 04/03/23 19:15 Ur Leukocyte Esterase 1+ (Negative) H 04/03/23 19:15 Urine RBC None /hpf (0-2) 04/03/23 19:15 Urine WBC 0-4 /hpf (0-5) H 04/03/23 19:15 Ur Squamous Epith Cells 0-4 /hpf (0-5) H 04/03/23 19:15 Amorphous Sediment Not Reportable 04/03/23 19:15 Urine Bacteria 1+ /hpf (NONE) H 04/03/23 19:15 Urine Mucus 1+ /hpf 04/03/23 19:15 EKG Data EKG 1: I personally reviewed and interpreted this EKG as follows: EKG interpretation date: 04/03/23 EKG interpretation time: 18:11 Prior EKG tracings: not available for review Interpretation: EKG showed ventricular rate 93 beats a minute, OH interval 172, QRS duration 88, QTc of 418, sinus rhythm, Discharge Plan Discharge Patient Disposition: Home Clinical Impression: Syncope Qualifiers: Syncope type: unspecified Qualified Code(s): R55 - Syncope and collapse Fall Qualifiers: Encounter type: initial encounter Qualified Code(s): W19.XXXA - Unspecified fall, initial encounter Urinary tract infection Qualifiers: Urinary tract infection type: acute cystitis Hematuria presence: without hematuria Qualified Code(s): N30.00 - Acute cystitis without hematuria Condition: Stable Prescriptions: New ciprofloxacin HCl 500 mg tablet 250 mg PO BID Qty: 20 0RF No Action Stomach medication PO BID docusate sodium [Colace] 100 mg capsule 100 mg PO DAILY Lantus Solostar U-100 Insulin 100 unit/mL (3 mL) insulin pen 10 unit SUBCUT DAILY lorazepam [Ativan] 1 mg tablet 1 mg PO DAILY PRN quetiapine [Seroquel] 400 mg tablet 400 mg PO .at hs Protonix 40 mg tablet,delayed release (DR/EC) 40 mg PO DAILY Qty: 60 0RF ondansetron 4 mg tablet,disintegrating 4 mg PO Q6H PRN (Reason: nausea and vomiting) Qty: 14 0RF hydrocodone-acetaminophen 5-325 mg tablet 1 tab PO Q8H PRN (Reason: pain (scale score 7-10)) Qty: 10 0RF Discharge Orders: Discharge ED (Routine); Ordered 04/03/23 Ordered By: Rajendra Prince Referrals: Chelita Alcaraz MD [Primary Care Provider] - 1 week Patient Instructions: Syncope, Urinary Tract Infection - Women Activity Restrictions/Additional Instructions: Please take all your antibiotics as directed. Please follow-up with your family practice physician within the next 7 days for further evaluation and testing as needed. Coding Level of Care Code ED Chief Lifestyle Officer for Randal Kirby
[2023-04-03 18:28] LABS: Glucose Point of Care 183 mg/dL (70-110)
[2023-04-03 18:58] LABS: Basophils % 0.4 %; Eosinophils # 0.2 10^3/uL (0.0-0.8); Eosinophils % 4.9 %; Hematocrit 39.8 % (36-47); Lymphocytes # 0.8 10^3/uL (0.8-4.8); Lymphocytes % 16.6 %; Mean Corpuscular HGB Conc 32.7 g/dL (30-55); Mean Corpuscular Hemoglobin 29.9 pg (27-33); Mean Corpuscular Volume 91.5 fl (85-98); Mean Platelet Volume 11.5 fL (7.4-10.4); Monocytes # 0.3 10^3/uL (0.2-0.9); Monocytes % 5.3 %; Neutrophils # 3.53 10^3/uL (1.8-7.7); Neutrophils % 72.4 %; Nucleated Red Blood Cells % 0 %; Platelet Count 122 10^3/cmm (157-399); Red Blood Count 4.35 10^6/uL (3.85-5.65); Red Cell Distribution Width 13.3 % (12.1-15.1); White Blood Count 4.88 10^3/uL (3.29-11.43)
[2023-04-03 19:06] VITALS: BP 173/57; PULSE 91; RESP 16; O2SAT 94
[2023-04-03 19:17] LABS: Alanine Aminotransferase 11 U/L (0-33); Albumin Level 4.6 g/dL (3.5-5.2); Alkaline Phosphatase 89 U/L (35-105); Anion Gap 16.9 (5-19); Aspartate Amino Transferase 17 U/L (0-32); Blood Urea Nitrogen 15 mg/dL (8-23); Calcium 8.7 mg/dL (8.5-10.5); Carbon Dioxide 23 mmol/L (22-29); Chloride 104 mmol/L (98-107); Globulin 2.7 g/dL (1.3-4.6); Glomerular Filtration Rate 55.3 mL/min (90-130); Glucose 179 mg/dL (65-115); Osmolality Calculated 295 mOsm/kg (285-295); Potassium 3.9 mmol/L (3.5-5.1); Sodium 140 mmol/L (136-145); Total Bilirubin 0.3 mg/dL (0.15-1.2); Total Protein 7.3 g/dL (6.6-8.7)
[2023-04-03 20:17] LABS: Add Urine Microscopic? YES; Bilirubin Urine Neg (Negative); Blood Urine Neg (Negative); Glucose Urine UA Norm (Normal); Ketones Urine 1+ (Negative); Leukocyte Esterase Urine 1+ (Negative); Nitrate Urine Negative (Negative); Protein Urine Neg (Negative); Urine Appearance Clear (CLEAR); Urine Color Yellow (Yellow); Urobilinogen Urine Neg (Negative); pH Urine 6.5 (5-7)
[2023-04-03 20:18] LABS: Add Urine Culture? No; Bacteria Urine 1+ /hpf; Mucus Urine 1+ /hpf; Squamous Epithelial Cell Urine 0-4 /hpf (0-5); WBC Urine 0-4 /hpf (0-5)
[2023-04-03 20:23] VITALS: BP 161/112; PULSE 80; RESP 16; O2SAT 99
[2023-04-03 20:29] VITALS: PULSE 808; RESP 18; O2SAT 95
[2023-04-03] MEDS: albuterol 2.5 mg/3 mL Neb INHALATION (20:29)
[2023-04-03] MEDS: ciprofloxacin 500 mg Tablet PO (20:52)
[2023-04-03 21:00] VITALS: BP 161/112; PULSE 80; RESP 18; TEMP 37.2; O2SAT 95
== END 2023-04-03 21:27 | disposition home or self-care (01) ==
PROVIDERS: Emergency Provider Emergency Medicine; PCP Family Medicine
DX: R55 Syncope and collapse (principal); N30.00 Acute cystitis without hematuria; Z79.4 Long term (current) use of insulin; S00.31XA Abrasion of nose, initial encounter; S50.311A Abrasion of right elbow, initial encounter; S80.212A Abrasion, left knee, initial encounter; S80.211A Abrasion, right knee, initial encounter; W18.39XA Other fall on same level, initial encounter
CPT/HCPCS: 36415; 36416; 70450; 70486; 71045; 80053; 81001; 82962; 85025; 93005; 94640; 99285; J7613

== ENCOUNTER 2023-08-23 03:02 | Emergency (ER) | payer MEDICAID, SELFPAY ==
[2023-08-23 03:04] VITALS: BP 156/111; PULSE 128; RESP 18; TEMP 36.9; O2SAT 96
--- NOTE | 2023-08-23 03:22 | W.ED.PSYCHS ---
HPI - Psych General: Chief Complaint: Psychiatric Symptoms Stated Complaint: stress, anxiety Time Seen by Provider: 08/23/23 03:12 History of Present Illness: Patient presents to the ER by EMS for stress and anxiety. Patient comes from [facility] where it is reported that she got an altercation with staff or another resident. 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 Patient says she is not suicidal or homicidal. Patient says she just came here to get away from the other individuals and to calm down. Patient has no complaints at this time. Review of Systems General: Reports: 10 or more systems reviewed and unremarkable except in HPI and below PFSH ED PFSH: Medical History Well woman exam with routine gynecological exam Surgical History H/O dilation and curettage S/P appendectomy Family History Sister Diabetes Mother Heart disease Thyroid disease Clotting disorder Father Hypertension Brain aneurysm Denies family history of Colon cancer Ovarian cancer Breast cancer Anesthesia complication Bleeding disorder Uterine cancer Stroke Social History Smoking and tobacco/nicotine status: never used tobacco/nicotine Alcohol intake: never Substance/Drug Use: never Physical Exam Const: COMMON NORMALS: no acute distress, average body habitus, patient oriented x3, no limitations, healthy appearing, alert and well nourished HENMT: COMMON NORMALS: normocephalic, atraumatic, hearing grossly normal bilaterally, external ears normal, Normal external nose present, moist oral mucous membranes and oropharynx normal HEAD & SCALP: normocephalic and atraumatic NOSE: Normal external nose present EXTERNAL EAR: Yes external ears normal Neck/C-Spine: COMMON NORMALS: full ROM, no lymphadenopathy, supple, no meningeal signs, no JVD and Thyroid normal THYROID: Thyroid normal Chest: COMMONS NORMALS: normal inspection of the chest and normal palpation of entire chest wall Resp: COMMON NORMALS: normal respiratory effort, No retractions, No use of accessory muscles and clear to auscultation bilaterally AUSCULTATION: clear to auscultation bilaterally Cardio: COMMON NORMALS: no JVD, regular rate, regular rhythm, S1 normal heart sound present, S2 normal heart sound present, No gallops present (Cardio), No clicks present (Cardio), No murmurs present (Cardio) and No rub (Cardio) RATE: regular rate RHYTHM: regular rhythm HEART SOUNDS: S1 normal heart sound present and S2 normal heart sound present GI: COMMON NORMALS: Normal to inspection, nondistended, normoactive bowel sounds present, Soft to palpation, non-tender, No hepatosplenomegaly present and no masses PALPATION: Yes Soft to palpation and Yes No hepatosplenomegaly present Neuro: COMMON NORMALS: patient oriented x3 SENSORIUM/ORIENTATION: Yes alert MENINGEAL SIGNS: Yes no meningeal signs Course Vital Signs: Vital signs: Vital Signs Temperature 98.4 F 08/23/23 03:04 Pulse Rate 100 08/23/23 03:36 Respiratory Rate 18 08/23/23 03:04 Blood Pressure 137/81 08/23/23 03:36 Pulse Oximetry 96 08/23/23 03:36 Oxygen Delivery Me thod Room Air 08/23/23 03:36 MDM - Psych Medical Decision Making Patient was observed in the ER approximately 1 hour. Patient began to calm down to the point she began to lie down and go to sleep. Patient was asked if she was okay she said yes and she was ready to go home. Patient be discharged home. Differential Diagnosis Unlikely acute psychosis, chronic schizophrenia, suicidal ideation, bipolar disorder, depression, drug-induced psychotic disorder or acute anxiety Medical Records I reviewed the patient's medical records. Lab Data I reviewed the patient's lab results. All radiology interpretation(s) finalized by discharge Discharge Plan Discharge Patient Disposition: Home Clinical Impression: Acute anxiety Condition: Stable Prescriptions: No Action Stomach medication PO BID docusate sodium [Colace] 100 mg capsule 100 mg PO DAILY Lantus Solostar U-100 Insulin 100 unit/mL (3 mL) insulin pen 10 unit SUBCUT DAILY lorazepam [Ativan] 1 mg tablet 1 mg PO DAILY PRN quetiapine [Seroquel] 400 mg tablet 400 mg PO .at hs Protonix 40 mg tablet,delayed release (DR/EC) 40 mg PO DAILY Qty: 60 0RF ondansetron 4 mg tablet,disintegrating 4 mg PO Q6H PRN (Reason: nausea and vomiting) Qty: 14 0RF ciprofloxacin HCl 500 mg tablet 250 mg PO BID Qty: 20 0RF hydrocodone-acetaminophen 5-325 mg tablet 1 tab PO Q8H PRN (Reason: pain (scale score 7-10)) Qty: 10 0RF Discharge Orders: Discharge ED (Routine); Ordered 08/23/23 Ordered By: Rajendra Prince Referrals: Chelita Alcaraz MD [Primary Care Provider] - Patient Instructions: Anxiety (ED) Activity Restrictions/Additional Instructions: Please try to get along with your roommates and the staff at your facility. This will make your stay there more pleasant. If this becomes a problem again please follow-up with your family practice physician for further evaluation and treatment. Coding Level of Care Code ED Shredder Tender for Randal Kirby
[2023-08-23 03:36] VITALS: BP 137/81; PULSE 100; O2SAT 96
[2023-08-23 04:52] VITALS: BP 126/84; RESP 16
== END 2023-08-23 04:54 | disposition home or self-care (01) ==
PROVIDERS: Emergency Provider Emergency Medicine; PCP Family Medicine
DX: F41.9 Anxiety disorder, unspecified (principal); Z79.4 Long term (current) use of insulin
CPT/HCPCS: 99281

== ENCOUNTER 2023-08-23 12:25 | Emergency (ER) | payer MEDICAID, SELFPAY ==
[2023-08-23 12:29] VITALS: BP 175/107; PULSE 110; RESP 18; TEMP 36.7; O2SAT 98; BMI 24.9
--- NOTE | 2023-08-23 12:53 | ECG_ITS ---
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 Measurements Intervals [place] Rate: 94 P: 69 AK: 170 QRS: -1 QRSD: 89 T: 72 QT: 353 QTc: 442 Interpretive Statements SINUS RHYTHM Compared to ECG 04/03/2023 18:11:53 No significant changes Electronically Signed On 08-23-2023 18:30:27 REHAB RN by Sen Ang M.D. [id number]
--- NOTE | 2023-08-23 12:56 | ED_ITS ---
HPI - Anxiety 2 General: Chief Complaint: Anxiety Stated Complaint: hallucinations Time Seen by Provider: 08/23/23 12:27 Source: patient and EMS Mode of arrival: EMS History of Present Illness: 68-[facility] along with [facility]inations. Patient is extremely anxious here she is tearful she states that people come in her room at night and she hears people talking outside her window she states she just wants the voices to go away. She denies any worsening improving factors. Associated symptoms: Deny chest pain, chills, fever(s), headache(s), nausea or vomiting Review of Systems 2 Const: Denies: fever(s) or chills Eyes: Denies: blurry vision or eye discomfort ENMT: Denies: throat pain or dental pain Card: Denies: chest pain Resp: Denies: dyspnea GI: Denies: abdominal pain, nausea, vomiting or diarrhea Musc: Denies: neck pain or back pain Skin/Breast: Denies: rash Neuro: Denies: headache(s) Psych: Reports: anxiety, depression and auditory hallucinations PFSH ED 2 PFSH: Medical History Well woman exam with routine gynecological exam Surgical History H/O dilation and curettage S/P appendectomy Family History Sister Diabetes Mother Heart disease Thyroid disease Clotting disorder Father Hypertension Brain aneurysm Denies family history of Colon cancer Ovarian cancer Breast cancer Anesthesia complication Bleeding disorder Uterine cancer Stroke Social History Smoking and tobacco/nicotine status: never used tobacco/nicotine Alcohol intake: never Substance/Drug Use: never Physical Exam 2 Const: COMMON NORMALS: no acute distress, patient oriented x3 and healthy appearing HENMT: COMMON NORMALS: normocephalic and atraumatic HEAD & SCALP: n ormocephalic and atraumatic Neck/C-Spine: COMMON NORMALS: full ROM and supple Chest: COMMONS NORMALS: normal inspection of the chest and normal palpation of entire chest wall Resp: COMMON NORMALS: normal respiratory effort, No retractions, No use of accessory muscles and clear to auscultation bilaterally AUSCULTATION: clear to auscultation bilaterally Cardio: COMMON NORMALS: regular rate, regular rhythm and No murmurs present (Cardio) RATE: regular rate RHYTHM: regular rhythm GI: COMMON NORMALS: Normal to inspection, nondistended, normoactive bowel sounds present, Soft to palpation, non-tender and no masses PALPATION: Yes Soft to palpation Extremity: COMMON NORMALS: normal to inspection and full ROM Neuro: COMMON NORMALS: patient oriented x3, moves all extremities and no focal motor deficits Psych: COMMON NORMALS: cooperative ATTITUDE: Yes paranoid MOOD & AFFECT: Yes depressed mood and Yes anxious THOUGHT CONTENT: Yes Hallucination(s) present Skin: COMMON NORMALS: no rashes or lesions noted and no wounds GENERAL SKIN EXAM: no rashes or lesions noted Course 2 Vital Signs: Vital signs: Vital Signs Temperature 98.1 F 08/23/23 12:29 Pulse Rate 72 08/23/23 20:38 Respiratory Rate 15 08/23/23 18:12 Blood Pressure 142/89 08/23/23 18:12 Pulse Oximetry 94 08/23/23 20:38 Oxygen Delivery Me thod Room Air 08/23/23 20:38 MDM - Anxiety Medical Decision Making Patient presents here with hallucinations along with depression patient is medically cleared here she is excepted at [facility] will transfer there for higher level of care of geriatric psych. Medical Records I reviewed the patient's medical records. Lab Data I reviewed the patient's lab results. 08/23/23 13:19 08/23/23 13:19 Laboratory Results WBC 3.58 10^3/uL (3.29-11.43) 08/23/23 13:19 RBC 3.93 10^6/uL (3.85-5.65) 08/23/23 13:19 Hgb 12.00 g/dL (11.27-16.99) 08/23/23 13:19 Hct 36.0 % (36-47) 08/23/23 13:19 MCV 91.6 fl (85-98) 08/23/23 13:19 MCH 30.5 pg (27-33) 08/23/23 13:19 MCHC 33.3 g/dL (30-55) 08/23/23 13:19 RDW 14.5 % (12.1-15.1) 08/23/23 13:19 Plt Count 112 10^3/cmm (157-399) L 08/23/23 13:19 MPV 10.8 fL (7.4-10.4) H 08/23/23 13:19 Neut % (Auto) 65.9 % 08/23/23 13:19 Lymph % (Auto) 20.1 % 08/23/23 13:19 [place] % (Auto) 11.2 % 08/23/23 13:19 Eos % (Auto) 2.2 % 08/23/23 13:19 Baso % (Auto) 0.3 % 08/23/23 13:19 Neut # (Auto) 2.36 10^3/uL (1.8-7.7) 08/23/23 13:19 Lymph # (Auto) 0.7 10^3/uL (0.8-4.8) L 08/23/23 13:19 [place] # (Auto) 0.4 10^3/uL (0.2-0.9) 08/23/23 13:19 Eos # (Auto) 0.1 10^3/uL (0.0-0.8) 08/23/23 13:19 Baso # (Auto) 0.0 10^3/uL (0.0-0.1) 08/23/23 13:19 Nucleated RBC % (auto) 0 % 08/23/23 13:19 Nucleated RBCs # 0.0 /100WBC 08/23/23 13:19 Sodium 141 mmol/L (136-145) 08/23/23 13:19 Potassium 3.8 mmol/L (3.5-5.1) 08/23/23 13:19 Chloride 104 mmol/L (98-107) 08/23/23 13:19 Carbon Dioxide 22 mmol/L (22-29) 08/23/23 13:19 Anion Gap 18.8 (5-19) 08/23/23 13:19 BUN 14 mg/dL (8-23) 08/23/23 13:19 Creatinine 1.1 mg/dL (0.5-0.9) H 08/23/23 13:19 GFR Calculation 49.5 mL/min (90-130) L 08/23/23 13:19 Glucose 115 mg/dL (65-115) 08/23/23 13:19 Calculated Osmolality 293 mOsm/kg (285-295) 08/23/23 13:19 Calcium 9.0 mg/dL (8.5-10.5) 08/23/23 13:19 Total Bilirubin 0.3 mg/dL (0.15-1.2) 08/23/23 13:19 AST 18 U/L (0-32) 08/23/23 13:19 ALT 12 U/L (0-33) 08/23/23 13:19 Alkaline Phosphatase 84 U/L (35-105) 08/23/23 13:19 Total Protein 7.0 g/dL (6.6-8.7) 08/23/23 13:19 Albumin 4.1 g/dL (3.5-5.2) 08/23/23 13:19 Globulin 2.9 g/dL (1.3-4.6) 08/23/23 13:19 TSH 3.26 uIU/mL (0.27-4.20) 08/23/23 13:19 Urine Color Yellow (Yellow) 08/23/23 13:39 Urine Appearance Clear (CLEAR) 08/23/23 13:39 Urine pH 5 (5-7) 08/23/23 13:39 Ur Specific [place] 1.020 (1.005-1.030) 08/23/23 13:39 Urine Protein Neg (Negative) 08/23/23 13:39 Urine Glucose (UA) Norm (Normal) 08/23/23 13:39 Urine Ketones Negative (Negative) 08/23/23 13:39 Urine Blood Neg (Negative) 08/23/23 13:39 Urine Nitrate Negative (Negative) 08/23/23 13:39 Urine Bilirubin 1+ (Negative) H 08/23/23 13:39 Urine Urobilinogen Norm mg/dL (Negative) 08/23/23 13:39 Ur Leukocyte Esterase Negative (Negative) 08/23/23 13:39 Salicylates < 0.3 mg/dL (3-10) L 08/23/23 13:19 Urine Opiates Screen Negative ng/mL (Negative) 08/23/23 13:39 Acetaminophen < 5.0 ug/mL (10-30) L 08/23/23 13:19 Ur Barbiturates Screen Negative ng/mL (Negative) 08/23/23 13:39 Ur Phencyclidine Scrn Negative ng/mL (Negative) 08/23/23 13:39 Ur Amphetamines Screen Negative ng/mL (Negative) 08/23/23 13:39 U Benzodiazepines Scrn Positive ng/mL (Negative) H 08/23/23 13:39 Urine Cocaine Screen Negative ng/mL (Negative) 08/23/23 13:39 U Marijuana (THC) Screen Negative ng/mL (Negative) 08/23/23 13:39 Ethyl Alcohol < 10 mg/dL (0-10) 08/23/23 13:19 Influenza Type A Ag negative (Negative) 08/23/23 12:57 Influenza Type B Ag negative (Negative) 08/23/23 12:57 RSV Antigen Negative (Negative) 08/23/23 12:57 SARS-CoV-2 Ag (Rapid) negative (Negative) 08/23/23 13:00 All radiology interpretation(s) finalized by discharge EKG Data EKG 1: I personally reviewed and interpreted this EKG as follows: EKG interpretation date: 08/23/23 EKG interpretation time: 12:53 Interpretation: nsr hr [address] or t wave abnormalities qrs 89 qtc 404 Discharge Plan Discharge Patient Disposition: Xfer Psychiatric Hosp Clinical Impression: Acute anxiety, Hallucinations Condition: Stable Prescriptions: No Action docusate sodium [Colace] 100 mg capsule 100 mg PO DAILY quetiapine [Seroquel] 400 mg tablet 400 mg PO QPM pantoprazole [Protonix] 40 mg tablet,delayed release (DR/EC) 40 mg PO DAILY Qty: 60 0RF ondansetron 4 mg tablet,disintegrating 4 mg PO Q6H PRN (Reason: nausea and vomiting) Qty: 14 0RF hydrocodone-acetaminophen 5-325 mg tablet 1 tab PO Q8H PRN (Reason: pain (scale score 7-10)) Qty: 10 0RF levothyroxine 25 mcg Tablet 25 mcg PO DAILY lorazepam 0.5 mg Tablet 0.25 mg PO BEDTIME fluoxetine 20 mg Tablet 60 mg PO DAILY metformin 1,000 mg Tablet 1,000 mg PO BID Flonase 50 mcg/actuation [place],Suspension 2 spray INTRANASAL DAILY Rx Instructions: administer into each nostril loratadine 10 mg Tablet 10 mg PO DAILY quetiapine 25 mg Tablet 25 mg PO BID acetaminophen 325 mg Tablet 325 mg PO QID PRN (Reason: Pain) quetiapine 100 mg Tablet 100 mg PO DAILY Milk of Magnesia 400 mg/5 mL Suspension 30 ml PO BID PRN (Reason: Constipation) [place] Cough Drops Lozenge 3.1 mg MUCOUS MEMBRANE Q3H PRN (Reason: Cough) Narcan 4 mg/actuation [place],Non-Aerosol 4 mg INTRANASAL Q3M PRN (Reason: Opioid Overdose) Rx Instructions: spray 1 dose into ONE nostril; alternate nostrils w each dose until help arrives vitamin I37-esmer acid 2,500-400 mcg Tablet,Disintegrating 1 tab PO DAILY Referrals: Chelita Alcaraz MD [Primary Care Provider] - Coding Level of Care Code ED Genetic Engineer for Randal Kirby
--- NOTE | 2023-08-23 13:17 | PC.PHAR ---
Addendum entered by Tamia Tomlinson 08/23/23 13:35: PT SHOWED LANTUS 10 UNITS DAILY ON PREVIOUS MED LIST- NO LONGER ON PTS MAR AND NOT VERIFIED BY PTS NURSE Addendum entered by Tamia Tomlinson 08/23/23 13:30: SECOND MAR FAXED BY [facility] ALSO INCORRECT- MEDICATIONS ENTERED PER WHAT PTS NURSE AT FACILITY TOLD ME WAS PRINTED ON PTS PILL PACKS Original Note: MEDICATIONS VERIFIED USING MAR FROM [facility] WP MO - SEVERAL INACCURATE DIRECTIONS ON PTS MEDICATIONS- CALLED AND SPOKE TO PTS NURSE AND SHE SAID PTS QUETIAPINE WAS CORRECT SHOWN ON MAR- SEP SHOWED PT WAS BEING GIVEN LORAZEPAM 0.5 MG AT BEDTIME AND ALSO 0.25 MG DAILY PT IS ACTUALLY ONLY TAKING 0.25 MG DAILY NONE AT BEDTIME- SEP ALSO SHOWED PT WAS BEING GIVEN 1000 MG METFORMIN BID WELL 500 MG DAILY, INCORRECT ON SEP PT ONLY TAKES 1000 MG BID. NURSE FAXED ME A CORRECTED MAR
[2023-08-23 13:31] LABS: Influenza A by IFA negative (Negative); Influenza B by IFA negative (Negative)
[2023-08-23 13:33] LABS: SARS Covid-2 Antigen negative (Negative)
[2023-08-23 13:35] LABS: Basophils % 0.3 %; Eosinophils # 0.1 10^3/uL (0.0-0.8); Eosinophils % 2.2 %; Lymphocytes # 0.7 10^3/uL (0.8-4.8); Lymphocytes % 20.1 %; Mean Corpuscular HGB Conc 33.3 g/dL (30-55); Mean Corpuscular Hemoglobin 30.5 pg (27-33); Mean Corpuscular Volume 91.6 fl (85-98); Mean Platelet Volume 10.8 fL (7.4-10.4); Monocytes # 0.4 10^3/uL (0.2-0.9); Monocytes % 11.2 %; Neutrophils # 2.36 10^3/uL (1.8-7.7); Neutrophils % 65.9 %; Nucleated Red Blood Cells % 0 %; Platelet Count 112 10^3/cmm (157-399); Red Blood Count 3.93 10^6/uL (3.85-5.65); Red Cell Distribution Width 14.5 % (12.1-15.1); White Blood Count 3.58 10^3/uL (3.29-11.43)
[2023-08-23 13:40] VITALS: BP 115/82
[2023-08-23 13:47] LABS: RSV Transfer Patient (ED) Negative (Negative)
[2023-08-23 13:50] LABS: Add Urine Microscopic? NO; Charge for UA Resulting for Rev
[2023-08-23 13:58] LABS: Alanine Aminotransferase 12 U/L (0-33); Albumin Level 4.1 g/dL (3.5-5.2); Alkaline Phosphatase 84 U/L (35-105); Anion Gap 18.8 (5-19); Aspartate Amino Transferase 18 U/L (0-32); Blood Urea Nitrogen 14 mg/dL (8-23); Carbon Dioxide 22 mmol/L (22-29); Chloride 104 mmol/L (98-107); Globulin 2.9 g/dL (1.3-4.6); Glomerular Filtration Rate 49.5 mL/min (90-130); Glucose 115 mg/dL (65-115); Osmolality Calculated 293 mOsm/kg (285-295); Potassium 3.8 mmol/L (3.5-5.1); Sodium 141 mmol/L (136-145); Thyroid Stimulating Hormone 3.26 uIU/mL (0.27-4.20); Total Bilirubin 0.3 mg/dL (0.15-1.2)
[2023-08-23 14:00] LABS: Acetaminophen < 5.0 ug/mL (10-30); Alcohol Level < 10 mg/dL (0-10); Salicylate < 0.3 mg/dL (3-10)
[2023-08-23 14:00] LABS: Bilirubin Urine 1+ (Negative); Blood Urine Neg (Negative); Glucose Urine UA Norm (Normal); Ketones Urine Negative (Negative); Leukocyte Esterase Urine Negative (Negative); Nitrate Urine Negative (Negative); Protein Urine Neg (Negative); Urine Appearance Clear (CLEAR); Urine Color Yellow (Yellow); Urobilinogen Urine Norm (Negative); pH Urine 5 (5-7)
[2023-08-23 14:09] LABS: Amphetamines Screen Urine Negative (Negative); Barbiturates Screen Urine Negative (Negative); Benzodiazepines Screen Urine Positive (Negative); Cocaine Screen Urine Negative (Negative); Opiate Screen Urine Negative (Negative); PCP Screen Urine Negative (Negative); THC Screen Urine Negative (Negative)
[2023-08-23 18:12] VITALS: BP 142/89; PULSE 73; RESP 15; O2SAT 93
--- NOTE | 2023-08-23 19:19 | PC.NURSE ---
this nurse spoke with [facility] intake and they stated their only concern at this point was HTN reading in chart, this nurse informed the sustainability coordinator of the most recent b/p, per sustainability coordinator to inform their provider and to call us back with acceptance or refusal of pt. @129
[2023-08-23 20:38] VITALS: PULSE 72; O2SAT 94
[2023-08-24 06:07] VITALS: BP 167/103; PULSE 85; RESP 18; O2SAT 94
== END 2023-08-24 09:18 ==
PROVIDERS: Emergency Provider Emergency Medicine; PCP Family Medicine
DX: F41.9 Anxiety disorder, unspecified (principal); R44.1 Visual hallucinations; R44.0 Auditory hallucinations; Z11.52 Encounter for screening for COVID-19; Z79.84 Long term (current) use of oral hypoglycemic drugs
CPT/HCPCS: 36415; 80053; 80306; 80307; 81003; 84443; 85025; 87426; 87804; 87899; 93005; 99284

== ENCOUNTER 2023-11-23 17:30 | Emergency (ER) | payer MEDICAID, SELFPAY ==
[2023-11-23 17:32] VITALS: BP 121/63; PULSE 73; RESP 16; TEMP 36.8; O2SAT 96; BMI 23.1
--- NOTE | 2023-11-23 17:39 | XRR_ITS ---
PROCEDURE INFORMATION: Exam: XR Chest Exam date and time: 11/23/2023 7:40 PM Age: 68 years old Clinical indication: Cough and dyspnea; Additional info: Dyspnea/cough TECHNIQUE: Imaging protocol: Radiologic exam of the chest. Views: 1 view. COMPARISON: CR XR chest 1V portable [id number] 04/03/2023 6:24 PM FINDINGS: Lungs: Unremarkable. No consolidation. Pleural spaces: Unremarkable. No pleural effusion. No pneumothorax. Heart/Mediastinum: Unremarkable. No cardiomegaly. Bones/joints: Unremarkable. XR/XR chest 1V portable [id number] IMPRESSION: No acute findings.
--- NOTE | 2023-11-23 17:45 | ECG_ITS ---
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 Measurements Intervals [place] Rate: 75 P: 66 DC: 176 QRS: 13 QRSD: 88 T: 70 QT: 390 QTc: 437 Interpretive Statements SINUS RHYTHM LOW QRS VOLTAGE IN PRECORDIAL LEADS [QRS DEFLECTION < 1.0 mV IN CHEST LEADS] Compared to ECG 08/23/2023 12:53:43 Low QRS voltage now present Electronically Signed On 11-23-2023 23:07:28 CDT by Narayan Arthur M.D. [id number]
[2023-11-23 17:48] VITALS: BP 122/83; BP 136/92; BP 141/79; PULSE 79; PULSE 84; PULSE 86
--- NOTE | 2023-11-23 17:56 | W.ED.DIZZY ---
Documented by User: Sony Caldwell DO 11/23/23 17:59 HPI - Dizziness General: Chief Complaint: Dizziness Stated Complaint: dizzy Time Seen by Provider: 11/23/23 17:32 Source: patient Mode of arrival: EMS History of Present Illness: HPI Narrative: 68-year-old female lives at assisted living presents emergency room via EMS with a complaint of dizziness and near syncopal episode. She had stood up got lightheaded and dizzy and nearly passed out she is diabetic blood glucose in the field was 117 no chest discomfort she is not having any symptoms now. She has had syncopal episodes in the past. No recent fever sweats chills nausea vomiting or diarrhea MD elicited complaint: dizziness and lightheadedness Onset (ago): minute(s) Description: sense of movement Context: change in body position Exacerbating factors: nothing Relieving factors: nothing Associated symptoms: Denies change in hearing, chest pain, chills, cough, diaphoresis, ear discharge, ear pressure, fevers/chills, headache(s), malaise, nausea, nasal congestion, palpitations, rash, short of breath, syncope, tinnitus, vomiting or weakness Review of Systems Const: Denies: fever(s), chills, malaise or diaphoresis ENMT: Denies: ear discharge, change in hearing, tinnitus or nasal congestion Card: Denies: chest pain, palpitations or syncope Resp: Denies: dyspnea or productive cough GI: Denies: nausea or vomiting : Denies: dysuria, urinary frequency or urinary urgency Musc: Denies: neck pain or back pain Skin/Breast: Denies: rash Neuro: Denies: headache(s) PFS ED PFSH: Medical History Well woman exam with routine gynecological exam Surgical History H/O dilation and curettage S/P appendectomy Family History Sister Diabetes Mother Heart disease Thyroid disease Clotting disorder Father Hypertension Brain aneurysm Denies family history of Colon cancer Ovarian cancer Breast cancer Anesthesia complication Bleeding disorder Uterine cancer Stroke Social History Smoking and tobacco/nicotine status: never used tobacco/nicotine Alcohol intake: never Substance/Drug Use: never Physical Exam Const: COMMON NORMALS: no acute distress GENERAL APPEARANCE: cooperative and comfortable ORIENTATION/CONSCIOUSNESS: Yes awake, Yes oriented to person, Yes oriented to place and Yes oriented to time HENMT: COMMON NORMALS: normocephalic, atraumatic and hearing grossly normal bilaterally HEAD & SCALP: normocephalic and atraumatic Resp: COMMON NORMALS: normal respiratory effort, No retractions, No use of accessory muscles and clear to auscultation bilaterally AUSCULTATION: clear to auscultation bilaterally Cardio: COMMON NORMALS: regular rate, regular rhythm and No murmurs present (Cardio) RATE: regular rate RHYTHM: regular rhythm GI: COMMON NORMALS: Soft to palpation and No hepatosplenomegaly present AUSCULTATION: Yes normoactive bowel sounds PALPATION: Yes Soft to palpation, No Tenderness to palpation present (GI), No Guarding due to palpation present (GI) and Yes No hepatosplenomegaly present Extremity: COMMON NORMALS: normal to inspection, capillary refill normal, no clubbing, cyanosis or edema, no calf tenderness and no pedal edema Neuro: SENSORIUM/ORIENTATION: Yes oriented to person, Yes oriented to place and Yes oriented to time Skin: COMMON NORMALS: no rashes or lesions noted GENERAL SKIN EXAM: no rashes or lesions noted Course Vital Signs: Vital signs: Vital Signs Temperature 98.3 F 11/23/23 17:32 Pulse Rate 72 11/23/23 18:13 Respiratory Rate 18 11/23/23 18:13 Blood Pressure 141/79 11/23/23 17:48 Pulse Oximetry 97 11/23/23 18:13 [facility] - Dizziness Medical Decision Making Care signed out to Dr. Prince at change of shift. See final notes for diagnosis and disposition. Lab Data 11/23/23 18:17 11/23/23 18:17 Radiology Impressions Chest X-Ray 11/23/23 17:39 IMPRESSION: No acute findings. Laboratory Results WBC 6.07 10^3/uL (3.29-11.43) 11/23/23 18:17 RBC 4.40 10^6/uL (3.85-5.65) 11/23/23 18:17 Hgb 13.10 g/dL (11.27-16.99) 11/23/23 18:17 Hct 39.7 % (36-47) 11/23/23 18:17 MCV 90.2 fl (85-98) 11/23/23 18:17 MCH 29.8 pg (27-33) 11/23/23 18:17 MCHC 33.0 g/dL (30-55) 11/23/23 18:17 RDW 13.0 % (12.1-15.1) 11/23/23 18:17 Plt Count 163 10^3/cmm (157-399) 11/23/23 18:17 MPV 10.7 fL (7.4-10.4) H 11/23/23 18:17 Neut % (Auto) 66.9 % 11/23/23 18:17 Lymph % (Auto) 22.7 % 11/23/23 18:17 Rowan % (Auto) 7.1 % 11/23/23 18:17 Eos % (Auto) 2.3 % 11/23/23 18:17 Baso % (Auto) 0.5 % 11/23/23 18:17 Neut # (Auto) 4.06 10^3/uL (1.8-7.7) 11/23/23 18:17 Lymph # (Auto) 1.4 10^3/uL (0.8-4.8) 11/23/23 18:17 Rowan # (Auto) 0.4 10^3/uL (0.2-0.9) 11/23/23 18:17 Eos # (Auto) 0.1 10^3/uL (0.0-0.8) 11/23/23 18:17 Baso # (Auto) 0.0 10^3/uL (0.0-0.1) 11/23/23 18:17 Nucleated RBC % (auto) 0 % 11/23/23 18:17 Nucleated RBCs # 0.0 /100WBC 11/23/23 18:17 Sodium 140 mmol/L (136-145) 11/23/23 18:17 Potassium 4.2 mmol/L (3.5-5.1) 11/23/23 18:17 Chloride 105 mmol/L (98-107) 11/23/23 18:17 Carbon Dioxide 23 mmol/L (22-29) 11/23/23 18:17 Anion Gap 16.2 (5-19) 11/23/23 18:17 BUN 13 mg/dL (8-23) 11/23/23 18:17 Creatinine 0.8 mg/dL (0.5-0.9) 11/23/23 18:17 GFR Calculation 71.5 mL/min (90-130) L 11/23/23 18:17 Glucose 121 mg/dL (65-115) H 11/23/23 18:17 Calculated Osmolality 291 mOsm/kg (285-295) 11/23/23 18:17 Calcium 8.5 mg/dL (8.5-10.5) 11/23/23 18:17 Total Bilirubin 0.3 mg/dL (0.15-1.2) 11/23/23 18:17 AST 12 U/L (0-32) 11/23/23 18:17 ALT 10 U/L (0-33) 11/23/23 18:17 Alkaline Phosphatase 86 U/L (35-105) 11/23/23 18:17 Total Protein 7.2 g/dL (6.6-8.7) 11/23/23 18:17 Albumin 4.1 g/dL (3.5-5.2) 11/23/23 18:17 Globulin 3.1 g/dL (1.3-4.6) 11/23/23 18:17 XR interpretation done by ED provider, pending radiology final review Discharge Plan Discharge Patient Disposition: Home Clinical Impression: Pre-syncope, Vertigo Condition: Stable Prescriptions: No Action docusate sodium [Colace] 100 mg capsule 100 mg PO DAILY quetiapine [Seroquel] 400 mg tablet 400 mg PO QPM pantoprazole [Protonix] 40 mg tablet,delayed release (DR/EC) 40 mg PO DAILY Qty: 60 0RF ondansetron 4 mg tablet,disintegrating 4 mg PO Q6H PRN (Reason: nausea and vomiting) Qty: 14 0RF hydrocodone-acetaminophen 5-325 mg tablet 1 tab PO Q8H PRN (Reason: pain (scale score 7-10)) Qty: 10 0RF levothyroxine 25 mcg Tablet 25 mcg PO DAILY lorazepam 0.5 mg Tablet 0.25 mg PO BEDTIME fluoxetine 20 mg Tablet 60 mg PO DAILY metformin 1,000 mg Tablet 1,000 mg PO BID Flonase 50 mcg/actuation [place],Suspension 2 spray INTRANASAL DAILY Rx Instructions: administer into each nostril loratadine 10 mg Tablet 10 mg PO DAILY quetiapine 25 mg Tablet 25 mg PO BID acetaminophen 325 mg Tablet 325 mg PO QID PRN (Reason: Pain) quetiapine 100 mg Tablet 100 mg PO DAILY Milk of Magnesia 400 mg/5 mL Suspension 30 ml PO BID PRN (Reason: Constipation) [place] Cough Drops Lozenge 3.1 mg MUCOUS MEMBRANE Q3H PRN (Reason: Cough) Narcan 4 mg/actuation [place],Non-Aerosol 4 mg INTRANASAL Q3M PRN (Reason: Opioid Overdose) Rx Instructions: spray 1 dose into ONE nostril; alternate nostrils w each dose until help arrives vitamin N26-ehese acid 2,500-400 mcg Tablet,Disintegrating 1 tab PO DAILY Discharge Orders: Discharge ED (Routine); Ordered 11/23/23 Ordered By: Rajendra Prince Referrals: Chelita Alcaraz MD [Primary Care Provider] - 1 week Patient Instructions: Vertigo (ED), Near Syncope (ED) Activity Restrictions/Additional Instructions: Your evaluation in ER including physical exam lab work and chest x-ray did not show any acute causes of your symptoms. Please follow-up with your family practice physician within the next 7 to 10 days for further evaluation and treatment as needed. If your symptoms return or worsen please feel free to return to the ER. Coding Level of Care Code ED Kitchen Steward for Chg Fwd Documented by User: Rajendra Prince DO 11/23/23 20:22 HPI - Dizziness General: Chief Complaint: Dizziness Stated Complaint: dizzy Time Seen by Provider: 11/23/23 17:32 [facility] ED PFSH: Medical History Well woman exam with routine gynecological exam Surgical History H/O dilation and curettage S/P appendectomy Family History Sister Diabetes Mother Heart disease Thyroid disease Clotting disorder Father Hypertension Brain aneurysm Denies family history of Colon cancer Ovarian cancer Breast cancer Anesthesia complication Bleeding disorder Uterine cancer Stroke Social History Smoking and tobacco/nicotine status: never used tobacco/nicotine Alcohol intake: never Substance/Drug Use: never Course Vital Signs: Vital signs: Vital Signs Temperature 98.3 F 11/23/23 17:32 Pulse Rate 72 11/23/23 18:13 Respiratory Rate 18 11/23/23 18:13 Blood Pressure 141/79 11/23/23 17:48 Pulse Oximetry 97 11/23/23 18:13 MDM - Dizziness Medical Decision Making Care signed out to Dr. Prince at change of shift. See final notes for diagnosis and disposition. Lab work was reviewed CBC CMP which essentially unremarkable, chest x-ray no acute findings, patient did not have any of these episodes while she was here. Patient be referred back to her family doctor for further evaluation and testing. Patient be discharged from the ER. Lab Data 11/23/23 18:17 11/23/23 18:17 Radiology Impressions Chest X-Ray 11/23/23 17:39 IMPRESSION: No acute findings. Laboratory Results WBC 6.07 10^3/uL (3.29-11.43) 11/23/23 18:17 RBC 4.40 10^6/uL (3.85-5.65) 11/23/23 18:17 Hgb 13.10 g/dL (11.27-16.99) 11/23/23 18:17 Hct 39.7 % (36-47) 11/23/23 18:17 MCV 90.2 fl (85-98) 11/23/23 18:17 MCH 29.8 pg (27-33) 11/23/23 18:17 MCHC 33.0 g/dL (30-55) 11/23/23 18:17 RDW 13.0 % (12.1-15.1) 11/23/23 18:17 Plt Count 163 10^3/cmm (157-399) 11/23/23 18:17 MPV 10.7 fL (7.4-10.4) H 11/23/23 18:17 Neut % (Auto) 66.9 % 11/23/23 18:17 Lymph % (Auto) 22.7 % 11/23/23 18:17 Rowan % (Auto) 7.1 % 11/23/23 18:17 Eos % (Auto) 2.3 % 11/23/23 18:17 Baso % (Auto) 0.5 % 11/23/23 18:17 Neut # (Auto) 4.06 10^3/uL (1.8-7.7) 11/23/23 18:17 Lymph # (Auto) 1.4 10^3/uL (0.8-4.8) 11/23/23 18:17 Rowan # (Auto) 0.4 10^3/uL (0.2-0.9) 11/23/23 18:17 Eos # (Auto) 0.1 10^3/uL (0.0-0.8) 11/23/23 18:17 Baso # (Auto) 0.0 10^3/uL (0.0-0.1) 11/23/23 18:17 Nucleated RBC % (auto) 0 % 11/23/23 18:17 Nucleated RBCs # 0.0 /100WBC 11/23/23 18:17 Sodium 140 mmol/L (136-145) 11/23/23 18:17 Potassium 4.2 mmol/L (3.5-5.1) 11/23/23 18:17 Chloride 105 mmol/L (98-107) 11/23/23 18:17 Carbon Dioxide 23 mmol/L (22-29) 11/23/23 18:17 Anion Gap 16.2 (5-19) 11/23/23 18:17 BUN 13 mg/dL (8-23) 11/23/23 18:17 Creatinine 0.8 mg/dL (0.5-0.9) 11/23/23 18:17 GFR Calculation 71.5 mL/min (90-130) L 11/23/23 18:17 Glucose 121 mg/dL (65-115) H 11/23/23 18:17 Calculated Osmolality 291 mOsm/kg (285-295) 11/23/23 18:17 Calcium 8.5 mg/dL (8.5-10.5) 11/23/23 18:17 Total Bilirubin 0.3 mg/dL (0.15-1.2) 11/23/23 18:17 AST 12 U/L (0-32) 11/23/23 18:17 ALT 10 U/L (0-33) 11/23/23 18:17 Alkaline Phosphatase 86 U/L (35-105) 11/23/23 18:17 Total Protein 7.2 g/dL (6.6-8.7) 11/23/23 18:17 Albumin 4.1 g/dL (3.5-5.2) 11/23/23 18:17 Globulin 3.1 g/dL (1.3-4.6) 11/23/23 18:17 Discharge Plan Discharge Patient Disposition: Home Clinical Impression: Pre-syncope, Vertigo Condition: Stable Prescriptions: No Action docusate sodium [Colace] 100 mg capsule 100 mg PO DAILY quetiapine [Seroquel] 400 mg tablet 400 mg PO QPM pantoprazole [Protonix] 40 mg tablet,delayed release (DR/EC) 40 mg PO DAILY Qty: 60 0RF ondansetron 4 mg tablet,disintegrating 4 mg PO Q6H PRN (Reason: nausea and vomiting) Qty: 14 0RF hydrocodone-acetaminophen 5-325 mg tablet 1 tab PO Q8H PRN (Reason: pain (scale score 7-10)) Qty: 10 0RF levothyroxine 25 mcg Tablet 25 mcg PO DAILY lorazepam 0.5 mg Tablet 0.25 mg PO BEDTIME fluoxetine 20 mg Tablet 60 mg PO DAILY metformin 1,000 mg Tablet 1,000 mg PO BID Flonase 50 mcg/actuation [place],Suspension 2 spray INTRANASAL DAILY Rx Instructions: administer into each nostril loratadine 10 mg Tablet 10 mg PO DAILY quetiapine 25 mg Tablet 25 mg PO BID acetaminophen 325 mg Tablet 325 mg PO QID PRN (Reason: Pain) quetiapine 100 mg Tablet 100 mg PO DAILY Milk of Magnesia 400 mg/5 mL Suspension 30 ml PO BID PRN (Reason: Constipation) [place] Cough Drops Lozenge 3.1 mg MUCOUS MEMBRANE Q3H PRN (Reason: Cough) Narcan 4 mg/actuation [place],Non-Aerosol 4 mg INTRANASAL Q3M PRN (Reason: Opioid Overdose) Rx Instructions: spray 1 dose into ONE nostril; alternate nostrils w each dose until help arrives vitamin Y15-abgtx acid 2,500-400 mcg Tablet,Disintegrating 1 tab PO DAILY Discharge Orders: Discharge ED (Routine); Ordered 11/23/23 Ordered By: Rajendra Prince Referrals: Chelita Alcaraz MD [Primary Care Provider] - 1 week Patient Instructions: Vertigo (ED), Near Syncope (ED) Activity Restrictions/Additional Instructions: Your evaluation in ER including physical exam lab work and chest x-ray did not show any acute causes of your symptoms. Please follow-up with your family practice physician within the next 7 to 10 days for further evaluation and treatment as needed. If your symptoms return or worsen please feel free to return to the ER. Coding Level of Care Code ED Kitchen Steward for Randal Kirby
[2023-11-23 18:13] VITALS: PULSE 72; RESP 18; O2SAT 97
[2023-11-23 18:29] LABS: Basophils % 0.5 %; Eosinophils # 0.1 10^3/uL (0.0-0.8); Eosinophils % 2.3 %; Hematocrit 39.7 % (36-47); Lymphocytes # 1.4 10^3/uL (0.8-4.8); Lymphocytes % 22.7 %; Mean Corpuscular Hemoglobin 29.8 pg (27-33); Mean Corpuscular Volume 90.2 fl (85-98); Mean Platelet Volume 10.7 fL (7.4-10.4); Monocytes # 0.4 10^3/uL (0.2-0.9); Monocytes % 7.1 %; Neutrophils # 4.06 10^3/uL (1.8-7.7); Neutrophils % 66.9 %; Nucleated Red Blood Cells % 0 %; Platelet Count 163 10^3/cmm (157-399); White Blood Count 6.07 10^3/uL (3.29-11.43)
[2023-11-23 18:45] LABS: Alanine Aminotransferase 10 U/L (0-33); Albumin Level 4.1 g/dL (3.5-5.2); Alkaline Phosphatase 86 U/L (35-105); Anion Gap 16.2 (5-19); Aspartate Amino Transferase 12 U/L (0-32); Blood Urea Nitrogen 13 mg/dL (8-23); Calcium 8.5 mg/dL (8.5-10.5); Carbon Dioxide 23 mmol/L (22-29); Chloride 105 mmol/L (98-107); Creatinine Clr Calc Pharmacy 61.7419; Globulin 3.1 g/dL (1.3-4.6); Glomerular Filtration Rate 71.5 mL/min (90-130); Glucose 121 mg/dL (65-115); Osmolality Calculated 291 mOsm/kg (285-295); Potassium 4.2 mmol/L (3.5-5.1); Sodium 140 mmol/L (136-145); Total Bilirubin 0.3 mg/dL (0.15-1.2); Total Protein 7.2 g/dL (6.6-8.7)
[2023-11-23 21:47] VITALS: BP 146/91; PULSE 72; RESP 16; TEMP 36.8; O2SAT 94
== END 2023-11-23 21:48 | disposition home or self-care (01) ==
PROVIDERS: Emergency Provider Family Medicine; PCP Family Medicine
DX: R55 Syncope and collapse (principal); R42 Dizziness and giddiness
CPT/HCPCS: 71045; 80053; 85025; 93005; 99285

== ENCOUNTER 2024-01-05 15:22 | Outpatient (CLI) | payer MEDICAID, SELFPAY ==
--- NOTE | 2024-01-05 15:26 | MM_ITS ---
WS: [id number] BILATERAL 3D TOMOSYNTHESIS DIGITAL SCREENING MAMMOGRAPHY WITH CAD CLINICAL INFORMATION: SCREENING HISTORY: Screening mammogram. No current complaints. COMPARISON: 12/12/2022 TECHNIQUE: Bilateral CC and MLO views. FINDINGS: Scattered fibroglandular densities bilaterally. No suspicious focal mass, asymmetry, calcifications, or architectural distortion. No evidence of malignancy. Vascular calcifications. Incidental punctate calcifications. MM/[place] [id number] IMPRESSION: BI-RADS: 2-Benign FOLLOW UP: 1 Year Follow-up Recommend return to annual screening mammography.
== END 2024-01-05 15:23 | disposition home or self-care (01) ==
PROVIDERS: PCP Family Medicine; Visit Provider Family Medicine
DX: Z12.31 Encounter for screening mammogram for malignant neoplasm of breast (principal); R92.323 Mammographic fibroglandular density, bilateral breasts; R92.1 Mammographic calcification found on diagnostic imaging of breast
CPT/HCPCS: 77063; 77067

== ENCOUNTER 2025-01-08 09:55 | Outpatient (CLI) | payer MEDICAID, SELFPAY ==
--- NOTE | 2025-01-08 09:58 | MM_ITS ---
WS: [id number] SCREENING DIGITAL BREAST TOMOSYNTHESIS MAMMOGRAM WITH CAD HISTORY: SCREENING COMPARISON: 01/05/2024, 12/12/2022 and 12/10/2021 Bilateral CC and MLO with tomosynthesis and synthetic mammography submitted. Computer aided detection analyzed. Breast composition: There are scattered areas of fibroglandular density. New linear asymmetry with calcifications in the posterior RIGHT breast towards 12:00. Only partially included on the CC projection due to its posterior position. There is an additional area of very mild architectural distortion in the upper outer quadrant LEFT breast. Additional benign and vascular calcifications. MM/MM scr BI tomosynthesis [id number] IMPRESSION: BI-RADS: 0 - Incomplete: Need additional imaging evaluation. FOLLOW UP: Need Additional Imaging RIGHT breast: Spot compression views (CC and MLO). True ML. Ultrasound to follo w if abnormality persists. Additional magnification views of the calcifications associated with the linear asymmetry at 12:00 posterior breast. LEFT breast: Spot compression views (CC and MLO). True ML. Ultrasound to follow if abnormality persists.
== END 2025-01-08 09:56 | disposition home or self-care (01) ==
PROVIDERS: PCP Internal Medicine; Visit Provider Internal Medicine
DX: Z12.31 Encounter for screening mammogram for malignant neoplasm of breast (principal); R92.323 Mammographic fibroglandular density, bilateral breasts; R92.1 Mammographic calcification found on diagnostic imaging of breast
CPT/HCPCS: 77063; 77067

== ENCOUNTER 2025-06-10 08:23 | Outpatient (CLI) | payer MEDICAID, SELFPAY ==
--- NOTE | 2025-06-10 08:30 | MM_ITS ---
WS: [id number] ADDITIONAL VIEWS BILATERAL MAMMOGRAM WITH DIGITAL BREAST TOMOSYNTHESIS. HISTORY: Abnormal findings on recent screening mammogram. COMPARISON: 01/08/2025, 01/05/2024, 12/12/2022 Spot compression views of each breast in CC, MLO projections and true ML submitted with digital breast tomosynthesis and SM. Magnification views RIGHT breast calcifications. Breast composition: There are scattered areas of fibroglandular density. RIGHT: The asymmetry in the central posterior RIGHT breast resolves with additional imaging. Benign-appearing calcifications are identified. No suspicious grouping of calcifications. LEFT: No persistent asymmetry or architectural distortion in the LEFT breast towards the upper outer quadrant. No additional imaging necessary. MM/MM diag BI tomosynthesis [id number] IMPRESSION: BI-RADS: 2 - Benign. FOLLOW UP: 1 Year Follow-up No persistent abnormality on additional imaging of either breast. Return to [facility] screening mammography.
== END 2025-06-10 08:24 | disposition home or self-care (01) ==
PROVIDERS: PCP Internal Medicine; Visit Provider Internal Medicine
DX: R92.8 Other abnormal and inconclusive findings on diagnostic imaging of breast (principal); R92.323 Mammographic fibroglandular density, bilateral breasts; R92.1 Mammographic calcification found on diagnostic imaging of breast
CPT/HCPCS: 77062; G0279